=== PATIENT | female | born 2000 | race Caucasian/White ===

== ENCOUNTER 2022-02-24 02:35 | Emergency (ER) | payer OTHER ==
[2022-02-24 03:31] VITALS: RESP 16; TEMP 98.6
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
--- NOTE | 2022-02-24 04:50 | XR ---
EXAMINATION TYPE: XR chest 1V DATE OF EXAM: 02/24/2022 COMPARISON: NONE HISTORY: Pain. TECHNIQUE: Single view FINDINGS: Heart and mediastinum are normal. Lungs are clear. Diaphragm is normal. Bony thorax is inta ct IMPRESSION: Normal chest.
[2022-02-24 05:01] LABS: Appearance,Urine Clear (Clear); Bacteria,Urine Rare /hpf; Bilirubin,Urine Negative (Negative); Blood,Urine Small (Negative); Color,Urine Yellow; Glucose,Urine (UA) Negative (Negative); Ketones,Urine Negative (Negative); Leukocyte Esterase,Urine Small (Negative); Mucus,Urine Few /hpf; Nitrite,Urine Negative (Negative); Protein,Urine Trace (Negative); RBC,Urine 4 /hpf (0-5); Specific Gravity,Urine 1.031 (1.001-1.035); Squamous Epithelial Cell,Urine 1 /hpf (0-4); Urobilinogen,Urine <2.0 mg/dL (<2.0); WBC,Urine 3 /hpf (0-5)
[2022-02-24 05:04] VITALS: BP 117/68; PULSE 83
== END 2022-02-24 05:33 | disposition home or self-care (01) ==
LOC: EC 02:35
DX: R10.9 Unspecified abdominal pain (principal); V49.40XA Driver injured in collision with unspecified motor vehicles in traffic accident, initial encounter
CPT/HCPCS: 71045; 72170; 81001; 81025; 99284

== ENCOUNTER 2023-06-27 23:05 | Emergency (ER) | payer OTHER ==
[2023-06-27 23:32] VITALS: TEMP 98.5
[2023-06-28 00:35] LABS: Basophils % (A) 0 %; Eosinophils # (A) 0.3 k/uL (0-0.7); Eosinophils % (A) 3 %; HCT 36.8 % (34.0-46.0); HGB 12.3 gm/dL (11.4-16.0); Lymphocytes # (A) 1.7 k/uL (1.0-4.8); Lymphocytes % (A) 14 %; MCH 28.4 pg (25.0-35.0); MCHC 33.5 g/dL (31.0-37.0); MCV 84.8 fL (80.0-100.0); Mean Platelet Volume 9.1; Monocytes # (A) 0.5 k/uL (0-1.0); Monocytes % (A) 5 %; Neutrophils # (A) 9.1 k/uL (1.3-7.7); Neutrophils % (A) 77 %; Platelet Count 206 k/uL (150-450); RBC 4.34 m/uL (3.80-5.40); WBC 11.8 k/uL (4.0-11.0)
--- NOTE | 2023-06-28 00:53 | ED ---
Chest Pain HPI - General Chief Complaint: Chest Pain Stated Complaint: Chest Pain Time Seen by Provider: 06/27/23 23:50 Source: patient, EMS Mode of arrival: EMS Limitations: no limitations - History of Present Illness Initial Comments: Iron, currently approximately 17 weeks 22-year-old otherwise healthy female presenting to the ED with chief complaint of chest pain. Patient states that she was going to watch a movie earlier tonight approximately 9 when she started to feel some sharp chest pain in the middle/right side of her chest. No associated shortness of breath or palpitations. Denies abdominal pain or vaginal bleeding. No other complaints at this time. - Related Data Previous Rx's Medication Instructions Recorded Cephalexin [Keflex] 500 mg PO Q6HR 7 Days #28 cap 06/28/23 Allergies Allergy/AdvReac Type Severity Reaction Status Date / Time No Known Allergies Allergy Verified 06/27/23 23:10 Review of Systems ROS Statement: Those systems with pertinent positive or pertinent negative responses have been documented in the HPI. ROS Other: All systems not noted in ROS Statement are negative. Past Medical History Past Medical History: No Reported History History of Any Multi-Drug Resistant Organisms: None Reported Past Surgical History: No Surgical Hx Reported Past Psychological History: ADD/ADHD Smoking Status: Never smoker Past Alcohol Use History: None Reported Past Drug Use History: None Reported General Exam Limitations: no limitations General appearance: alert, in no apparent distress Eye exam: Present: normal appearance Neck exam: Present: normal inspection Respiratory exam: Present: normal lung sounds bilaterally, other (Reproducible right chest wall tenderness to palpation.) Cardiovascular Exam: Present: regular rate, normal rhythm GI/Abdominal exam: Present: soft, normal bowel sounds. Absent: distended, tenderness, guarding, rebound, rigid Neurological exam: Present: alert, oriented X3 Skin exam: Present: warm, dry Course Vital Signs 06/27/23 23:06 Temperature 98.5 F Pulse Rate 87 Respiratory 18 Rate Blood Pressure 132/80 O2 Sat by Pulse 100 Oximetry Chest Pain MDM - MDM Was pt. sent in by a medical professional or institution (RONY Daly, SAFETY PATROL OFFICER, urgent care, hospital, or intermediate...) When possible be specific @ -No Did you speak to anyone other than the patient for history (EMS, parent, family, police, friend...)? What history was obtained from this source @ -No Did you review nursing and triage notes (agree or disagree)? Why? @ -I reviewed and agree with nursing and triage notes Were old charts reviewed (outside hosp., previous admission, EMS record, old EKG, old radiological studies, urgent care reports/EKG's, intermediate records)? Report findings @ -No old charts were reviewed Differential Diagnosis (chest pain, altered mental status, abdominal pain women, abdominal pain men, vaginal bleeding, weakness, fever, dyspnea, syncope, headache, dizziness, GI bleed, back pain, seizure, CVA, palpatations, mental health, musculoskeletal)? @ -Differential Chest Pain: Stable Angina, Unstable Angina, STEMI, NSTEMI Aortic Dissection, Pneumothorax, Musculoskeletal, Esophageal Spasm GERD, Cholecystitis, Pancreatitis, Zoster, this is not meant to be an all-inclusive list. EKG interpreted by me (3pts min.). @ -EKG interpreted by me showing a sinus rhythm with nonspecific findings at a rate of 91 bpm. KS 198, QRS 83, QT/QTc 353/402. X-rays interpreted by me (1pt min.). @ -None CT interpreted by me (1pt min.). @ -None done U/S interpreted by me (1pt. min.). @ -None done What testing was considered but not performed or refused? (CT, X-rays, U/S, labs)? Why? @ -Chest x-ray was considered however at this time patient is and risk outweigh benefits. This was discussed with patient who is in agreement. What meds were considered but not given or refused? Why? @ -None Did you discuss the management of the patient with other professionals (professionals i.e. , PA, SAFETY PATROL OFFICER, lab, RT, psych nurse, social media executive, bleach boiler filler, teacher, compliance review officer, porter sample case)? Give summary @ -No Was smoking cessation discussed for >3mins.? @ -No Was critical care preformed (if so, how long)? @ -No Were there social determinants of health that impacted care today? How? (Homelessness, low income, unemployed, alcoholism, drug addiction, transportation, low edu. Level, literacy, decrease access to med. care, alf, rehab)? @ -No Was there de-escalation of care discussed even if they declined (Discuss DNR or withdrawal of care, Hospice)? DNR status @ -No What co-morbidities impacted this encounter? (DM, HTN, Smoking, COPD, CAD, Cancer, CVA, ARF, Chemo, Hep., AIDS, mental health diagnosis, sleep apnea, morbid obesity)? @ - Was patient admitted / discharged? Hospital course, mention meds given and route, prescriptions, significant lab abnormalities, going to OR and other pertinent info. @ -Discharge 22-year-old female currently 17 weeks presenting to the ED with a chief complaint of chest pain. Patient reports pain is sharp in nature and on the middle/right side of her chest and started to feel earlier prior to watching a movie. Laboratory studies reviewed. CBC shows an elevated white blood cell count 11.8, elevated neutrophils at 9.1. Chemistry panel largely unremarkable. Troponin undetectable. hCG quant 24,905.2. Urine does show 5 white blood cells however contaminated with 18 squamous cells moderate bacteria. On examination patient does have reproducible mid and right-sided chest wall tenderness to palpation. Regarding chest pain likely musculoskeletal in nature. Advised Tylenol at home for pain. With asymptomatic bacteriuria patient provided prescription for Keflex. Patient reports that she has been unable to follow-up with ASSOCIATE PROGRAMMER. Provided referral for ASSOCIATE PROGRAMMER. Discharged home in stable condition. Discussed return precautions with patient who verbalized agreement. Undiagnosed new problem with uncertain prognosis? @ -No Drug Therapy requiring intensive monitoring for toxicity (Heparin, Nitro, Insulin, Cardizem)? @ -No Were any procedures done? @ -No Diagnosis/symptom? @ -Chest pain Acute, or Chronic, or Acute on Chronic? @ -Acute Uncomplicated (without systemic symptoms) or Complicated (systemic symptoms)? @ -Uncomplicated Side effects of treatment? @ -No Exacerbation, Progression, or Severe Exacerbation? @ -No Poses a threat to life or bodily function? How? (Chest pain, [place], [place], pneumonia, PE, COPD, DKA, ARF, appy, cholecystitis, CVA, Diverticulitis, Homicidal, Suicidal, threat to staff... and all critical care pts) @ -No Disposition Clinical Impression: Chest pain Disposition: HOME SELF-CARE Condition: Good Instructions (If sedation given, give patient instructions): Chest Pain (ED) Additional Instructions: Please return to the Emergency Department if symptoms worsen or any other concerns. Please follow-up with your PCP and ASSOCIATE PROGRAMMER. Prescriptions: Cephalexin [Keflex] 500 mg PO Q6HR 7 Days #28 cap Is patient prescribed a controlled substance at d/c from ED?: No Referrals: Brian Munoz MD [Primary Care Provider] - 1-2 days Sita Louise MD [STAFF PHYSICIAN] - 1-2 days Time of Disposition: 02:48
[2023-06-28 00:54] LABS: INR 0.9 (<1.2); Partial Thromboplastin Time 24.8 sec (22.0-30.0); Prothrombin Time 10.3 sec (10.0-12.5)
[2023-06-28 01:00] LABS: Amorphous Sediment,Urine Rare /hpf; Appearance,Urine Cloudy (Clear); Bacteria,Urine Moderate /hpf; Bilirubin,Urine Negative (Negative); Blood,Urine Negative (Negative); Color,Urine Light Yellow; Glucose,Urine (UA) Negative (Negative); Ketones,Urine Negative (Negative); Leukocyte Esterase,Urine Negative (Negative); Mucus,Urine Moderate /hpf; Nitrite,Urine Negative (Negative); PH, Urine 6.5 (5.0-8.0); Protein,Urine Negative (Negative); RBC,Urine 1 /hpf (0-5); Specific Gravity,Urine 1.015 (1.001-1.035); Squamous Epithelial Cell,Urine 18 /hpf (0-4); Urobilinogen,Urine <2.0 mg/dL (<2.0); WBC,Urine 5 /hpf (0-5)
[2023-06-28 01:54] LABS: ALT 12 U/L (4-34); African American GFR (CKD) >90 (>60 ml/min/1.73 sqM); Anion Gap 11 mmol/L; Blood Urea Nitrogen 6 mg/dL (7-17); Carbon Dioxide 17 mmol/L (22-30); Chloride 107 mmol/L (98-107); Glucose 91 mg/dL (74-99); Non-African American GFR(CKD) >90 (>60 ml/min/1.73 sqM); Sodium 135 mmol/L (137-145); Total Bilirubin 0.8 mg/dL (0.2-1.3)
[2023-06-28 02:02] LABS: AST 36 U/L (14-36); Albumin 3.9 g/dL (3.5-5.0); Alkaline Phosphatase 61 U/L (38-126); Magnesium 1.8 mg/dL (1.6-2.3); Potassium 4.6 mmol/L (3.5-5.1); Total Protein 7.1 g/dL (6.3-8.2)
[2023-06-28 02:38] LABS: HCG,Quantitative Serum 24915.2 mIU/mL
[2023-06-28 03:14] VITALS: BP 121/70; PULSE 90; RESP 17
== END 2023-06-28 02:55 | disposition home or self-care (01) ==
LOC: EC 23:05
DX: O26.892 Other specified pregnancy related conditions, second trimester (principal); R07.89 Other chest pain; Z3A.17 17 weeks gestation of pregnancy
CPT/HCPCS: 36415; 80053; 81001; 83735; 84484; 84702; 85025; 85610; 85730; 93005; 99285

== ENCOUNTER 2023-07-26 23:28 | Emergency (ER) | payer OTHER ==
[2023-07-26 23:51] VITALS: RESP 18; TEMP 98
[2023-07-27 01:22] LABS: Basophils # (A) 0.1 k/uL (0-0.2); Basophils % (A) 0 %; Eosinophils # (A) 0.3 k/uL (0-0.7); Eosinophils % (A) 2 %; HCT 37.4 % (34.0-46.0); HGB 12.5 gm/dL (11.4-16.0); Lymphocytes # (A) 1.6 k/uL (1.0-4.8); Lymphocytes % (A) 9 %; MCH 28.6 pg (25.0-35.0); MCHC 33.4 g/dL (31.0-37.0); MCV 85.6 fL (80.0-100.0); Monocytes # (A) 0.7 k/uL (0-1.0); Monocytes % (A) 4 %; Neutrophils # (A) 13.9 k/uL (1.3-7.7); Neutrophils % (A) 84 %; Platelet Count 236 k/uL (150-450); RBC 4.36 m/uL (3.80-5.40); RDW 13.3 % (11.5-15.5); WBC 16.5 k/uL (4.0-11.0)
--- NOTE | 2023-07-27 01:57 | US ---
EXAM: US Abdomen Complete CLINICAL HISTORY: ITS.REASON US Reason: epigastric pain TECHNIQUE: Real-time ultrasound of the abdomen with image documentation. COMPARISON: No relevant prior studies available. FINDINGS: Liver: Unremarkable. No mass. No intrahepatic bile duct dilation. Gallbladder: Numerous small gallstones without evidence of gallbladder distention or wall thickening. Common bile duct: Common bile duct measures 0.3 cm. No stones. No dilation. Pancreas: Unremarkable as visualized. Kidneys: Right kidney measures 10.0 cm. No stones. No hydronephrosis. Spleen: Unremarkable. No splenomegaly. Aorta: Unremarkable. No abdominal aortic aneurysm. Inferior vena cava: Unremarkable. IMPRESSION: Cholelithiasis.
[2023-07-27 02:04] LABS: ALT 23 U/L (4-34); AST 56 U/L (14-36); African American GFR (CKD) >90 (>60 ml/min/1.73 sqM); Albumin 3.8 g/dL (3.5-5.0); Alkaline Phosphatase 78 U/L (38-126); Amylase 74 U/L (30-110); Anion Gap 9 mmol/L; Blood Urea Nitrogen 9 mg/dL (7-17); Calcium 8.9 mg/dL (8.4-10.2); Carbon Dioxide 21 mmol/L (22-30); Chloride 107 mmol/L (98-107); Glucose 129 mg/dL (74-99); Lipase 69 U/L (23-300); Non-African American GFR(CKD) >90 (>60 ml/min/1.73 sqM); Potassium 3.6 mmol/L (3.5-5.1); Sodium 137 mmol/L (137-145); Total Bilirubin 0.5 mg/dL (0.2-1.3); Total Protein 6.9 g/dL (6.3-8.2)
--- NOTE | 2023-07-27 02:25 | ED ---
Abdominal Pain HPI - General Chief Complaint: Abdominal Pain Stated Complaint: 21 weeks preg, Abdominal Pain, Chest pain Time Seen by Provider: 07/27/23 00:08 Source: patient Mode of arrival: ambulatory Limitations: no limitations - History of Present Illness Initial Comments: 22-year-old female currently 21 weeks presenting with chief complaint o f abdominal pain. Patient states that this evening she was having some pain in the epigastric region that was radiating up into the chest. The pain has since come down and remains in the bilateral upper quadrants and wraps around the umbilicus. Patient has had no vaginal bleeding or abnormal discharge or fluid. Patient has not received care yet, states that her first appointment is next week. She has been taking a vitamin. She admits to some nausea with no vomiting. No fevers. No diarrhea, hematochezia, melena. No URI-like symptoms. No difficulty breathing. - Related Data Previous Rx's Medication Instructions Recorded Cephalexin [Keflex] 500 mg PO Q6HR 7 Days #28 cap 06/28/23 Allergies Allergy/AdvReac Type Severity Reaction Status Date / Time No Known Allergies Allergy Verified 07/26/23 23:32 Review of Systems ROS Statement: Those systems with pertinent positive or pertinent negative responses have been documented in the HPI. ROS Other: All systems not noted in ROS Statement are negative. Past Medical History Past Medical History: No Reported History History of Any Multi-Drug Resistant Organisms: None Reported Past Surgical History: No Surgical Hx Reported Past Psychological History: ADD/ADHD Smoking Status: Never smoker Past Alcohol Use History: None Reported Past Drug Use History: None Reported General Exam Limitations: no limitations General appearance: alert, in no apparent distress Head exam: Present: atraumatic, normocephalic Eye exam: Present: normal appearance, EOMI Neck exam: Present: normal inspection. Absent: meningismus Respiratory exam: Present: normal lung sounds bilaterally. Absent: respiratory distress, wheezes, rales, rhonchi, stridor Cardiovascular Exam: Present: regular rate, normal rhythm, normal heart sounds. Absent: systolic murmur, diastolic murmur, rubs, gallop, clicks GI/Abdominal exam: Present: soft, tenderness (Upper abdominal pain). Absent: distended, guarding, rebound, rigid Neurological exam: Present: alert, oriented X3 Psychiatric exam: Present: normal affect, normal mood Skin exam: Present: warm, dry Course Vital Signs 07/26/23 07/27/23 23:30 03:03 Temperature 98 F Pulse Rate 83 88 Respiratory 18 18 Rate Blood Pressure 131/80 130/72 O2 Sat by Pulse 100 100 Oximetry Medical Decision Making - Medical Decision Making Was pt. sent in by a medical professional or institution (RONY Daly, TORPEDO MAN, urgent care, hospital, or jail...) When possible be specific @ -No Did you speak to anyone other than the patient for history (EMS, parent, family, police, friend...)? What history was obtained from this source @ -No Did you review nursing and triage notes (agree or disagree)? Why? @ -I reviewed and agree with nursing and triage notes Were old charts reviewed (outside hosp., previous admission, EMS record, old EKG, old radiological studies, urgent care reports/EKG's, jail records)? Report findings @ -No old charts were reviewed Differential Diagnosis (chest pain, altered mental status, abdominal pain women, abdominal pain men, vaginal bleeding, weakness, fever, dyspnea, syncope, headache, dizziness, GI bleed, back pain, seizure, CVA, palpatations, mental health, musculoskeletal)? @ -MDM Differential Abdominal Pain Women: Appendicitis, Cholecystitis, diverticulosis, ischemic bowel, pancreatitis, hepatitis, UTI, gastroenteritis, AAA, incarcerated hernia, bowel obstruction, constipation, inflammatory bowel, hepatitis, peptic ulcer disease, splenic infarction, perforated viscus, vulvitis, ovarian torsion, PID, kidney stone, placenta abruption... This is not meant to be an all-inclusive list EKG interpreted by me (3pts min.). @ -As above X-rays interpreted by me (1pt min.). @ -None done CT interpreted by me (1pt min.). @ -None done U/S interpreted by me (1pt. min.). @ -Abdominal ultrasound shows cholelithiasis What testing was considered but not performed or refused? (CT, X-rays, U/S, labs)? Why? @ -None What meds were considered but not given or refused? Why? @ -None Did you discuss the management of the patient with other professionals (professionals i.e. RONY Daly, TORPEDO MAN, lab, RT, psych nurse, director social welfare, airline pilot, teacher, ict help desk officer, case monitor)? Give summary @ -No Was smoking cessation discussed for >3mins.? @ -No Was critical care preformed (if so, how long)? @ -No Were there social determinants of health that impacted care today? How? (Homelessness, low income, unemployed, alcoholism, drug addiction, transportation, low edu. Level, literacy, decrease access to med. care, senior care, rehab)? @ -No Was there de-escalation of care discussed even if they declined (Discuss DNR or withdrawal of care, Hospice)? DNR status @ -No What co-morbidities impacted this encounter? (DM, HTN, Smoking, COPD, CAD, Cancer, CVA, ARF, Chemo, Hep., AIDS, mental health diagnosis, sleep apnea, morbid obesity)? @ -None Was patient admitted / discharged? Hospital course, mention meds given and route, prescriptions, significant lab abnormalities, going to OR and other pertinent info. @ -22-year-old female currently 21 weeks presenting with chief complaint of abdominal pain. No vaginal bleeding. Started as epigastric pain. History and physical exam are conducted. WBC 16.5, may be reactive from . Abdominal ultrasound shows cholelithiasis. On reassessment patient reports resolution of her pain. heart tones were obtained by labor and delivery nurse were in the 150s. Patient is educated on today's findings. Instructed to follow-up with her ACCOUNTS RECEIVABLE ADMINISTRATOR. Discharged home. Follow-up with PCP. Report back to ER with any new or worsening symptoms. Discussed return parameters and answered all questions. Patient conveyed verbal understanding and agreed to the plan. I discussed this case in detail with my attending Dr. Krishna Undiagnosed new problem with uncertain prognosis? @ -No Drug Therapy requiring intensive monitoring for toxicity (Heparin, Nitro, Insulin, Cardizem)? @ -No Were any procedures done? @ -No Diagnosis/symptom? @ -Cholelithiasis Acute, or Chronic, or Acute on Chronic? @ -Acute Uncomplicated (without systemic symptoms) or Complicated (systemic symptoms)? @ -Uncomplicated Side effects of treatment? @ -No Exacerbation, Progression, or Severe Exacerbation? @ -No Poses a threat to life or bodily function? How? (Chest pain, [place], [place], pneumonia, PE, COPD, DKA, ARF, appy, cholecystitis, CVA, Diverticulitis, Homicidal, Suic idal, threat to staff... and all critical care pts) @ -No - Lab Data Result diagrams: 07/27/23 00:55 07/27/23 00:55 Lab Results 07/27/23 07/27/23 07/27/23 Range/Units 00:55 00:55 00:55 WBC 16.5 H (4.0-11.0) k/uL RBC 4.36 (3.80-5.40) m/uL Hgb 12.5 (11.4-16.0) gm/dL Hct 37.4 (34.0-46.0) % MCV 85.6 (80.0-100.0) fL MCH 28.6 (25.0-35.0) pg MCHC 33.4 (31.0-37.0) g/dL RDW 13.3 (11.5-15.5) % Plt Count 236 (150-450) k/uL MPV 9.0 Neutrophils % 84 % Lymphocytes % 9 % Monocytes % 4 % Eosinophils % 2 % Basophils % 0 % Neutrophils # 13.9 H (1.3-7.7) k/uL Lymphocytes # 1.6 (1.0-4.8) k/uL Monocytes # 0.7 (0-1.0) k/uL Eosinophils # 0.3 (0-0.7) k/uL Basophils # 0.1 (0-0.2) k/uL Sodium 137 (137-145) mmol/L Potassium 3.6 (3.5-5.1) mmol/L Chloride 107 (98-107) mmol/L Carbon Dioxide 21 L (22-30) mmol/L Anion Gap 9 mmol/L BUN 9 (7-17) mg/dL Creatinine 0.46 L (0.52-1.04) mg/dL Est GFR (CKD-EPI)AfAm >90 (>60 ml/min/1.73 sqM) Est GFR (CKD-EPI)NonAf >90 (>60 ml/min/1.73 sqM) Glucose 129 H (74-99) mg/dL Plasma Lactic Acid Luis Alberto 1.8 (0.7-2.0) mmol/L Calcium 8.9 (8.4-10.2) mg/dL Total Bilirubin 0.5 (0.2-1.3) mg/dL AST 56 H (14-36) U/L ALT 23 (4-34) U/L Alkaline Phosphatase 78 (38-126) U/L Total Protein 6.9 (6.3-8.2) g/dL Albumin 3.8 (3.5-5.0) g/dL Amylase 74 (30-110) U/L Lipase 69 (23-300) U/L Disposition Clinical Impression: Cholelithiasis Disposition: HOME SELF-CARE Condition: Fair Instructions (If sedation given, give patient instructions): Gallstones (ED), Low Fat Diet (ED) Additional Instructions: Report to OB triage. follow-up with PCP and ACCOUNTS RECEIVABLE ADMINISTRATOR. Report back to ER with any new or worsening symptoms. Is patient prescribed a controlled substance at d/c from ED?: No Referrals: Brian Munoz MD [Primary Care Provider] - 1-2 days Time of Disposition: 02:11
[2023-07-27 03:35] VITALS: BP 130/72; PULSE 88
== END 2023-07-27 03:03 | disposition home or self-care (01) ==
LOC: EC 23:28
DX: O26.892 Other specified pregnancy related conditions, second trimester (principal); K80.20 Calculus of gallbladder without cholecystitis without obstruction; Z3A.21 21 weeks gestation of pregnancy
CPT/HCPCS: 36415; 76705; 80053; 82150; 83605; 83690; 85025; 93005; 99284

== ENCOUNTER 2023-08-04 21:37 | Outpatient (CLI) | payer OTHER ==
[2023-08-04 22:17] VITALS: BP 131/75; PULSE 98; RESP 16; TEMP 96.8
--- NOTE | 2023-08-07 08:15 | P.MSEPDOC ---
Presenting Problems - Arrival Data Date of Arrival on Unit: 08/04/23 Time of Arrival on Unit: 21:37 Mode of Transport: Ambulatory - Complaint OB-Reason for Admission/Chief Complaint: Decreased Movement Comment: Pt presents to triage with c/o decreased movement since yesterday at 2200 and and felt faint today around 1pm when shopping. Medical History - Information : 1 Para: 0 Term: 0 : 0 Abortions: Spontaneous or Elective: 0 Number of Living Children: 0 - Gestational Age Gestational Age by SRINIVAS (wks/days): 22 Weeks and 4 Days Review of Systems - Review of Systems Constitutional: No problems Breast: No problems ENT: No problems Cardiovascular: No problems Respiratory: No problems Gastrointestinal: No problems Genitourinary: No problems Musculoskeletal: No problems Neurological: No problems Skin: No problems Comment: pt. states she felt "faintish" when shopping at 1pm today Vital Signs - Temperature Temperature: 96.8 F Temperature Source: Temporal Artery Scan - Pulse Pulse Oximetery Pulse Rate: 98 Pulse Assessment Method: Automatic Cuff - Respirations Respiratory Rate: 16 Oxygen Delivery Method: Room Air O2 Sat by Pulse Oximetry: 98 - Blood Pressure Right Arm Blood Pressure: 131/75 Blood Pressure Mean: 93 Blood Pressure Source: Automatic Cuff Medical Screen Scoring - Assessment - Baby A Baseline FHR: 160 Physician Notification - Physician Notified Physician Notified Date: 08/04/23 Physician Notified Time: 21:48 Physician: Apryl Whitney New Order Received: Yes - Notification Comment Comment: FHR 148-160 with doppler, orders to discharge home educated on movement at this stage in pregancy, also to increase fluid intake and snacks before going out Maternal Triage Index - Stat/Priority 1 Stat Priority 1: No - Urgent/Priority 2 Urgent Priority 2: Yes Provider Notified: Apryl Whitney Provider Notified Time: 21:48 Criteria Met for Priority 2: pt. states decrease movement Disposition - Disposition OB Disposition: Discharge to home Discharge Date: 08/04/23 Discharge Time: 21:55 I agree with the RN Medical Screening Exam: Yes Case reviewed; plan agreed upon as documented in EMR&OBIX.: Yes Diagnosis: DECREASED MOVEMENTS, SECOND TRIMESTER, FETUS 1
== END 2023-08-04 21:55 | disposition home or self-care (01) ==
LOC: FBPOP 21:37
PROVIDERS: ATTEND Obstetrics & Gynecology
DX: O36.8121 Decreased fetal movements, second trimester, fetus 1 (principal); Z3A.22 22 weeks gestation of pregnancy
CPT/HCPCS: 99213

== ENCOUNTER 2023-08-09 18:31 | Outpatient (CLI) | payer SELFPAY ==
[2023-08-09 19:49] VITALS: BP 128/72; PULSE 90; RESP 16; TEMP 98.8
--- NOTE | 2023-09-11 09:12 | P.MSEPDOC ---
Presenting Problems - Arrival Data Date of Arrival on Unit: 08/09/23 Time of Arrival on Unit: 18:31 Mode of Transport: Ambulatory - Complaint OB-Reason for Admission/Chief Complaint: Decreased Movement, Pain Medical History - Information : 1 Para: 0 Term: 0 : 0 Abortions: Spontaneous or Elective: 0 Number of Living Children: 0 - Gestational Age Gestational Age by SRINIVAS (wks/days): 23 Weeks and 2 Days Review of Systems - Review of Systems Constitutional: No problems Breast: No problems ENT: No problems Cardiovascular: No problems Respiratory: No problems Gastrointestinal: No problems Genitourinary: No problems Musculoskeletal: No problems Neurological: No problems Skin: No problems Vital Signs - Temperature Temperature: 98.8 F Temperature Source: Temporal Artery Scan - Pulse Right Sitting Pulse Rate: 90 Pulse Assessment Method: Automatic Cuff - Respirations Respiratory Rate: 16 Oxygen Delivery Method: Room Air - Blood Pressure Right Arm Blood Pressure: 128/72 Blood Pressure Mean: 90 Blood Pressure Source: Automatic Cuff Physician Notification - Physician Notified Physician Notified Date: 08/09/23 Physician Notified Time: 18:59 Physician: Che Luke New Order Received: Yes (d/c home) Maternal Triage Index - Non-Urgent/Priority 4 Non-Urgent Priority 4: Yes Criteria Met for Priority 4: decreased FM at 23 weeks gestation, fht dopplered 140-150 bpm, no contractions Disposition - Disposition OB Disposition: Discharge to home Discharge Date: 08/09/23 Discharge Time: 19:16 I agree with the RN Medical Screening Exam: Yes Case reviewed; plan agreed upon as documented in EMR&OBIX.: Yes Diagnosis: DECREASED MOVEMENTS, SECOND TRIMESTER, FETUS 1
== END 2023-08-09 19:16 | disposition home or self-care (01) ==
LOC: FBPOP 18:31
PROVIDERS: ATTEND Obstetrics & Gynecology Obstetrics
DX: O36.8121 Decreased fetal movements, second trimester, fetus 1 (principal); Z3A.23 23 weeks gestation of pregnancy
CPT/HCPCS: 99213

== ENCOUNTER 2023-09-05 17:34 | Outpatient (CLI) | payer SELFPAY ==
[2023-09-05 19:02] VITALS: BP 128/76; PULSE 96; RESP 16; TEMP 97.9
--- NOTE | 2023-09-15 09:30 | P.MSEPDOC ---
Presenting Problems - Arrival Data Date of Arrival on Unit: 09/05/23 Time of Arrival on Unit: 17:34 Mode of Transport: Ambulatory - Complaint OB-Reason for Admission/Chief Complaint: Pain Comment: sharp constant right side back pain, under scapula, and lower abd cramping for the last 2 days Medical History - Information : 1 Para: 0 Term: 0 : 0 Abortions: Spontaneous or Elective: 0 Number of Living Children: 0 - Gestational Age Gestational Age by SRINIVAS (wks/days): 27 Weeks and 1 Days Review of Systems - Review of Systems Constitutional: No problems Breast: No problems ENT: No problems Cardiovascular: No problems Respiratory: No problems Gastrointestinal: No problems Genitourinary: No problems Musculoskeletal: No problems Neurological: No problems Skin: No problems Vital Signs - Temperature Temperature: 97.9 F Temperature Source: Temporal Artery Scan - Pulse Right Sitting Pulse Rate: 96 Pulse Assessment Method: Automatic Cuff - Respirations Respiratory Rate: 16 Oxygen Delivery Method: Room Air - Blood Pressure Right Arm Blood Pressure: 128/76 Blood Pressure Mean: 93 Blood Pressure Source: Automatic Cuff Medical Screen Scoring - Assessment - Baby A Baseline FHR: 145 Heart Rate - NICHD Category: Category I (Normal) Physician Notification - Physician Notified Physician Notified Date: 09/05/23 Physician Notified Time: 18:30 Physician: Salbador Boland Order Received: Yes (d/c) Maternal Triage Index - Non-Urgent/Priority 4 Non-Urgent Priority 4: Yes Criteria Met for Priority 4: pt to triage c/o sharp constant right side back pain, under scapula, and lower abd cramping for the last 2 days, reassuring fht, no contracrions Disposition - Disposition OB Disposition: Discharge to home Discharge Date: 09/05/23 Discharge Time: 18:41 I agree with the RN Medical Screening Exam: Yes Physician's MSE Comment: I have neither seen nor examined the patient. Case reviewed; plan agreed upon as documented in EMR&OBIX.: Yes Diagnosis: RELATED CONDITIONS, UNSPECIFIED, SECOND TRIMESTER
== END 2023-09-05 18:41 | disposition home or self-care (01) ==
LOC: FBPOP 17:34
PROVIDERS: ATTEND Obstetrics & Gynecology
DX: O26.892 Other specified pregnancy related conditions, second trimester (principal); R10.30 Lower abdominal pain, unspecified; M54.50 Low back pain, unspecified; Z3A.27 27 weeks gestation of pregnancy
CPT/HCPCS: 99213

== ENCOUNTER 2023-11-07 20:39 | Outpatient (CLI) | payer OTHER ==
[2023-11-07] MEDS: CALCIUM CARBONATE 500 MG CHEWABLE PO PRN (21:40)
[2023-11-07 22:20] LABS: Appearance,Urine Clear (Clear); Bacteria,Urine Rare /hpf; Bilirubin,Urine Negative (Negative); Blood,Urine Negative (Negative); Color,Urine Yellow; Glucose,Urine (UA) Negative (Negative); Ketones,Urine Negative (Negative); Leukocyte Esterase,Urine Negative (Negative); Mucus,Urine Moderate /hpf; Nitrite,Urine Negative (Negative); Protein,Urine 1+ (Negative); RBC,Urine 1 /hpf (0-5); Specific Gravity,Urine 1.029 (1.001-1.035); Squamous Epithelial Cell,Urine 4 /hpf (0-4); WBC,Urine 1 /hpf (0-5)
[2023-11-07 23:48] VITALS: BP 129/71; PULSE 92; RESP 16; TEMP 97.2
--- NOTE | 2024-01-02 20:34 | P.MSEPDOC ---
Presenting Problems - Arrival Data Date of Arrival on Unit: 11/07/23 Time of Arrival on Unit: 20:39 Mode of Transport: Ambulatory - Complaint OB-Reason for Admission/Chief Complaint: Possible Onset of Labor, Pain Comment: Pt presents to triage with c/0 cx 5 min apart starting at 1999 rates 10/17. Pt also c/o chest pain starting aroudn the same time. Pt states chest pain is "sharp but thinks it might be related to her hx of gallstones" Medical History - Information : 1 Para: 0 Term: 0 : 0 Abortions: Spontaneous or Elective: 0 - Gestational Age Gestational Age by SRINIVAS (wks/days): 36 Weeks and 1 Days Review of Systems - Review of Systems Constitutional: No problems Breast: No problems ENT: No problems Cardiovascular: No problems Respiratory: No problems Gastrointestinal: No problems Genitourinary: No problems Musculoskeletal: No problems Neurological: No problems Skin: No problems Vital Signs - Temperature Temperature: 97.2 F Temperature Source: Temporal Artery Scan - Pulse Pulse Oximetery Pulse Rate: 92 Pulse Assessment Method: Pulse Oximetry - Respirations Respiratory Rate: 16 Oxygen Delivery Method: Room Air O2 Sat by Pulse Oximetry: 99 - Blood Pressure Right Arm Blood Pressure: 129/71 Blood Pressure Mean: 90 Blood Pressure Source: Automatic Cuff Medical Screen Scoring - Uterine Contractions Intensity: Mild Resting: Soft to palpation - Assessment - Baby A Baseline FHR: 135 Heart Rate - NICHD Category: Category I (Normal) NST: Reactive Physician Notification - Physician Notified Physician Notified Date: 11/07/23 Physician Notified Time: 21:30 Physician: Sita Louise New Order Received: Yes - Notification Comment Comment: Dr. Louise called with report, Rn reported on uterine irritabilty, cervical check (closed,thick,high), reactive NST, complaint of contractions every 5 minutes with pain rating 7/10, complaint of white discharge. Orders to obtain and send UA, give 2 tums and watch for 1 hour. Maternal Triage Index - Stat/Priority 1 Stat Priority 1: No - Urgent/Priority 2 Urgent Priority 2: No - Prompt/Priority 3 Prompt Priority 3: Yes Criteria Met for Priority 3: Pt presents to triage with c/0 cx 5 min apart starting at 1999 rates 10/17. Pt also c/o chest pain starting aroudn the same time. Pt states chest pain is "sharp but thinks it might be related to her hx of gallstones" Disposition - Disposition OB Disposition: Discharge to home Discharge Date: 11/07/23 Discharge Time: 22:56 I agree with the RN Medical Screening Exam: Yes Physician's MSE Comment: I have neither seen nor examined the patient Case reviewed; plan agreed upon as documented in EMR&OBIX.: Yes Diagnosis: FALSE LABOR, UNSPECIFIED
== END 2023-11-07 22:56 | disposition home or self-care (01) ==
LOC: FBPOP 20:39
PROVIDERS: ATTEND Obstetrics & Gynecology
DX: O47.03 False labor before 37 completed weeks of gestation, third trimester (principal); Z3A.36 36 weeks gestation of pregnancy
CPT/HCPCS: 59025; 81001; 99213

== ENCOUNTER → 2023-11-16 | Outpatient (CLI) | payer OTHER | LOC: FBPOP 21:36 | PROVIDERS: ATTEND Obstetrics & Gynecology | CPT/HCPCS: 59025; 99213 ==

== ENCOUNTER 2023-12-03 12:09 | Outpatient (CLI) | payer OTHER ==
[2023-12-03 13:37] VITALS: BP 131/72; PULSE 93; RESP 18; TEMP 96.5
--- NOTE | 2023-12-22 09:16 | P.MSEPDOC ---
Presenting Problems - Arrival Data Date of Arrival on Unit: 12/03/23 Time of Arrival on Unit: 12:15 Mode of Transport: Ambulatory - Complaint OB-Reason for Admission/Chief Complaint: Possible Onset of Labor Comment: cramping every 5 minutes since 0950 Medical History - Information : 1 Para: 0 Term: 0 : 0 Abortions: Spontaneous or Elective: 0 Number of Living Children: 0 - Gestational Age Gestational Age by SRINIVAS (wks/days): 39 Weeks and 6 Days Review of Systems - Review of Systems Constitutional: No problems Breast: No problems ENT: No problems Cardiovascular: No problems Respiratory: No problems Gastrointestinal: No problems Genitourinary: No problems Musculoskeletal: No problems Neurological: No problems Skin: No problems Vital Signs - Temperature Temperature: 96.5 F Temperature Source: Temporal Artery Scan - Pulse Right Brachial Pulse Rate: 93 Pulse Assessment Method: Automatic Cuff - Respirations Respiratory Rate: 18 Oxygen Delivery Method: Room Air O2 Sat by Pulse Oximetry: 97 - Blood Pressure Right Arm Blood Pressure: 131/72 Blood Pressure Mean: 91 Blood Pressure Source: Automatic Cuff Medical Screen Scoring - Cervical Exam Dilation (cm): 0 Effacement (%): 0 Station: -3 Membranes: Intact - Uterine Contractions Frequency From (mins): 4 Frequency To (mins): 7 Duration From (seconds): 50 Duration To (seconds): 80 Intensity: Mild Resting: Soft to palpation - Assessment - Baby A Baseline FHR: 130 Heart Rate - NICHD Category: Category I (Normal) NST: Reactive Physician Notification - Physician Notified Physician Notified Date: 12/03/23 Physician Notified Time: 12:25 Physician: Salbador Boland Order Received: Yes - Notification Comment Comment: D/C Home and follow up in office as scheuled this week Maternal Triage Index - Maternal Triage Index Presenting for scheduled procedure w/no complaint: No - Stat/Priority 1 Stat Priority 1: No - Urgent/Priority 2 Urgent Priority 2: No - Prompt/Priority 3 Prompt Priority 3: No - Non-Urgent/Priority 4 Non-Urgent Priority 4: Yes Criteria Met for Priority 4: contractions every 4-7 minutes Disposition - Disposition OB Disposition: Discharge to home Discharge Date: 12/03/23 Discharge Time: 13:20 I agree with the RN Medical Screening Exam: Yes Physician's MSE Comment: I have neither seen nor examined the patient. Case reviewed; plan agreed upon as documented in EMR&OBIX.: Yes Diagnosis: RELATED CONDITIONS, UNSPECIFIED, THIRD TRIMESTER
== END 2023-12-03 13:20 | disposition home or self-care (01) ==
LOC: FBPOP 12:09
PROVIDERS: ATTEND Obstetrics & Gynecology
CPT/HCPCS: 59025; 99213

== ENCOUNTER 2023-12-04 06:00 | Inpatient (IN) | payer OTHER ==
[2023-12-04] MEDS: DINOPROSTONE 10 MG INSERT.ER VAGINAL ONE (16:56)
[2023-12-04 21:03] LABS: Basophils % (A) 0 %; Eosinophils # (A) 0.2 k/uL (0-0.7); Eosinophils % (A) 2 %; HCT 34.2 % (34.0-46.0); HGB 11.1 gm/dL (11.4-16.0); Lymphocytes # (A) 1.7 k/uL (1.0-4.8); Lymphocytes % (A) 18 %; MCH 27.3 pg (25.0-35.0); MCHC 32.6 g/dL (31.0-37.0); MCV 83.9 fL (80.0-100.0); Mean Platelet Volume 10.1; Monocytes # (A) 0.6 k/uL (0-1.0); Monocytes % (A) 6 %; Neutrophils # (A) 6.9 k/uL (1.3-7.7); Neutrophils % (A) 72 %; Platelet Count 227 k/uL (150-450); RBC 4.08 m/uL (3.80-5.40); RDW 13.8 % (11.5-15.5); WBC 9.6 k/uL (3.8-10.6)
[2023-12-05] MEDS ORDERED: TRANEXAMIC 1,000 MG/100ML-NACL 1,000 MG in EMPTY BAG 1 BAG IV PRN (00:34)
[2023-12-05] MEDS ORDERED: miSOPROStoL 200 MCG TAB PO PRN (00:34)
[2023-12-05] MEDS ORDERED: CARBOPROST TROMETHAMINE 250 MCG/ML 1 ML AMP IM PRN (00:34)
[2023-12-05] MEDS ORDERED: OXYTOCIN 10 UNIT/ML 1 ML VIAL IM PRN ×2 (00:34→16:42)
[2023-12-05] MEDS ORDERED: LIDOCAINE 0.5% (PF) 5 MG/ML (50 ML SDV) SQ PRN (00:34)
[2023-12-05] MEDS ORDERED: METHYLERGONOVINE 0.2 MG/ML 1 ML AMP IM PRN (00:34)
[2023-12-05] MEDS ORDERED: miSOPROStoL 200 MCG TAB RECTAL PRN (00:34)
[2023-12-05] MEDS ORDERED: TERBUTALINE 1 MG/ML VIAL SQ PRN (00:34)
[2023-12-05] MEDS: LACTATED RINGERS 1,000 ML IV SCH (00:41)
[2023-12-05] MEDS ORDERED: OXYTOCIN 30 UNITS/500 ML NS 30 UNIT in SALINE 1 500ML.BAG IV SCH ×2 (00:45→18:15)
[2023-12-05] MEDS: NALBUPHINE 10 MG/ML (10 ML MDV) IV PRN (01:21)
[2023-12-05] MEDS ORDERED: SODIUM CHLORIDE 0.9% 250 ML BAG ONE (04:46)
[2023-12-05] MEDS ORDERED: fentaNYL (PF) 50 MCG/ML 5 ML AMP ONE (04:46)
[2023-12-05] MEDS ORDERED: ROPIVACAINE 5 MG/ML 30 ML VIAL ONE (04:46)
[2023-12-05] MEDS: AMPICILLIN 2,000 MG in SODIUM CHLORIDE 0.9% 100 ML IVPB ONE (05:55)
[2023-12-05] MEDS: AMPICILLIN 1,000 MG in SODIUM CHLORIDE 0.9% 50 ML IVPB SCH (10:00)
[2023-12-05] MEDS: ACETAMINOPHEN IV (For NPO) 1,000 MG in EMPTY BAG 1 BAG IVPB ONE (14:55)
[2023-12-05] MEDS: diphenhydrAMINE 50 MG/ML 1 ML VIAL IVP STA (14:57)
[2023-12-05] MEDS: CITRIC ACID-SODIUM CITRATE 15 ML CUP PO ONE (16:55)
[2023-12-05] MEDS ORDERED: MORPHINE SULFATE (PF) 0.3 MG/0.3 ML SYR ONE (17:06)
[2023-12-05] MEDS ORDERED: OXYTOCIN 30 UNITS/500 ML NS BAG IV ONE (17:06)
[2023-12-05] MEDS ORDERED: KETOROLAC 15 MG/ML 1 ML VIAL ONE (17:06)
--- NOTE | 2023-12-05 17:59 | P.HPOB ---
History of Present Illness H&P Date: 12/04/23 Chief Complaint: induction of labor 23 year old presented for an induction of labor At 40 weeks. Her cervix is closed and thick and so she came for a Cervidil induction. The heart tones are category 1 and she's not pedro. Review of Systems All systems: negative Constitutional: Denies chills, Denies fever Eyes: denies blurred vision, denies pain Ears, nose, mouth and throat: Denies headache, Denies sore throat Cardiovascular: Denies chest pain, Denies shortness of breath Respiratory: Denies cough Gastrointestinal: Denies abdominal pain, Denies diarrhea, Denies nausea, Denies vomiting Genitourinary: Denies dysuria, Denies hematuria Musculoskeletal: Denies myalgias Integumentary: Denies pruritus, Denies rash Neurological: Denies numbness, Denies weakness Psychiatric: Denies anxiety, Denies depression Endocrine: Denies fatigue, Denies weight change Past Medical History Past Medical History: No Reported History History of Any Multi-Drug Resistant Organisms: None Reported Past Surgical History: No Surgical Hx Reported Past Anesthesia/Blood Transfusion Reactions: No Reported Reaction Past Psychological History: Depression Smoking Status: Never smoker Past Alcohol Use History: None Reported Past Drug Use History: None Reported - Past Family History Mother History Unknown: Yes Additional Family Medical History / Comment(s): pt adopted Father History Unknown: Yes Additional Family Medical History / Comment(s): pt adopted Medications and Allergies Home Medications Medication Instructions Recorded Confirmed Type Vit No.179/Iron/Folic 1 each PO DAILY 08/04/23 12/04/23 History [ Tablet] Allergies Allergy/AdvReac Type Severity Reaction Status Date / Time No Known Allergies Allergy Verified 12/04/23 16:25 Exam Osteopathic Statement: *. No significant issues noted on an osteopathic structural exam other than those noted in the History and Physical/Consult. Intake and Output 12/05/23 12/05/23 12/05/23 06:59 14:59 22:59 Intake Total 1999 Balance 1999 Intake: IV 1999 Heart: Regular rate and rhythm Lungs: Clear to auscultation bilaterally Abdomen: Soft, nontender Extremities: Negative Homans sign Results Result Diagrams: 12/04/23 20:41 Abnormal Lab Results - Last 24 Hours (Table) 12/04/23 Range/Units 20:41 Hgb 11.1 L (11.4-16.0) gm/dL Assessment and Plan (1) Elective induction of labor planned Current Visit: Yes Status: Acute Code(s): [id number] - SNOMED Code(s): 045122472 Plan: 1. Cervidil tonight and then Pitocin and amniotomy in the morning
[2023-12-05] MEDS ORDERED: diphenhydrAMINE 50 MG/ML 1 ML VIAL IVP PRN (18:05)
[2023-12-05] MEDS ORDERED: LANOLIN CREAM 1 GM TUBE TOPICAL PRN (18:05)
[2023-12-05] MEDS ORDERED: diphenhydrAMINE 50 MG CAP PO PRN (18:05)
[2023-12-05] MEDS ORDERED: ONDANSETRON 4 MG/2 ML VIAL IVP PRN (18:05)
[2023-12-05] MEDS ORDERED: NALOXONE 0.4 MG/ML 1 ML VIAL IV PRN (18:05)
[2023-12-05] MEDS ORDERED: METOCLOPRAMIDE 5 MG/ML 2 ML VIAL IVP PRN (18:05)
[2023-12-05] MEDS ORDERED: ZOLPIDEM 5 MG TAB PO PRN (18:05)
[2023-12-05] MEDS ORDERED: diphenhydrAMINE 25 MG CAP PO PRN (18:05)
--- NOTE | 2023-12-05 18:05 | P.OP ---
Date of Procedure: 12/05/23 Preoperative Diagnosis: 1. Arrest of active phase 2. maternal fever 3. at 40 weeks Postoperative Diagnosis: same and OP position Procedure(s) Performed: primary low transverse Anesthesia: epidural Surgeon: Apryl Whitney [employer] Cook #1: Kimberley Roberson Estimated Blood Loss (ml): 790 IV fluids (ml): 1,000 Urine output (ml): 100 Pathology: none sent Condition: stable Disposition: floor Indications for Procedure: 23-year-old presented at 40 weeks' gestation for induction of labor. Her cervix was closed and thick and Cervidil was placed. She progressed throughout the night and her water spontaneously broke. By the morning she was 7 cm. heart tones category 1. Midday the mother was still 8 cm and not making any cervical change. Cervix was well and she did get a fever that was treated with a 4 minutes. The nurse had thought she was in anterior lip but then she was 8 cm again and this was from at least 8:00 in the morning until 5:00 at night. Informed consent was obtained patient huddle was performed at bedside section was called. Operative Findings: viable male, Apgars 9, 9, weight 8 pounds. normal uterus, tubes, ovaries. Description of Procedure: Patient was taken to the operating room where epidural anesthesia was found be adequate. She was prepped and draped in normal sterile fashion in dorsal supine position with a leftward tilt. Pfannenstiel skin incision was made the scalpel and carried through to the underlying layer of fascia with the scalpel. Fascia was incised in midline and carried bilaterally with the Gutierrez scissors. The superior aspect of the fascial incision was grasped with Veyo clamps elevated and the underlying rectus muscles dissected off with the Gutierrez's. Attention was then turned to inferior aspect of same incision which in a similar fashion was grasped tented up and the underlying rectus muscles dissected off with the Gutierrez's. The rectus muscles were the midline and the peritoneum was identified tented up and entered sharply with the scalpel. The incision was extended superiorly and inferiorly with good visualization of the bladder. The bladder blade was inserted and the vesicouterine peritoneum was incised the Metzenbaums then carried bilaterally and bladder flap created digitally. A low transverse incision was then made on the uterus with the scalpel. This was carried bilaterally and digital manner. 's head delivered atraumatically, nose and mouth bulb suctioned, cord clamped and cut, handed off to yovanny gil nurses. Apgars 9,9, weight 8 lbs. 0 oz. Placenta delivered manually, intact with three-vessel cord. The uterus is exteriorized and cleared of all clots and debris. The uterine incision was closed with 0 Vicryl in a running locked fashion. Second layer of the same sutures used in imbricating fashion to obtain excellent hemostasis. The fascia was reapproximated using 0 Vicryl in a running fashion. The subcutaneous tissues closed with 3-0 Vicryl running fashion. The skin was closed jonh. Patient tolerated the procedure well, sponge and instrument counts were correct times 2 and she was taken to the recovery room in stable condition.
[2023-12-05] MEDS: SENNOSIDES-DOCUSATE SODIUM 1 EACH TAB PO SCH (20:43)
[2023-12-05] MEDS: ACETAMINOPHEN TAB 500 MG TAB PO SCH (21:14)
[2023-12-06] MEDS: KETOROLAC 15 MG/ML 1 ML VIAL IVP SCH (00:07)
[2023-12-06] MEDS: diphenhydrAMINE 50 MG/ML 1 ML VIAL IVP PRN (00:09)
[2023-12-06] MEDS: IBUPROFEN 600 MG TAB PO SCH (02:58)
[2023-12-06] MEDS ORDERED: KETOROLAC 15 MG/ML 1 ML VIAL IVP SCH (06:00)
--- NOTE | 2023-12-06 06:54 | P.PN ---
Progress Note - Text Progress Note Date: 12/06/23 Postoperative day 1 status post section under epidural anesthesia, and epidural morphine given for postoperative analgesia, patient doing well, there is no anesthesia related complications, Patient had no headache, vital signs stable , Assessment and plan= postop day 1 status post , doing well there is no anesthesia related complication.
--- NOTE | 2023-12-06 07:21 | P.PNOBGPC ---
Subjective - Subjective Principal diagnosis: S/P 1*LTCS POD #1 Interval history: Patient seen and examined. Denies N/V, F/C, CP, SOB, calf pain. Patient reports: Reports appetite normal, Reports voiding normally, Reports pain well controlled, Reports ambulating normally : doing well Objective - Vital Signs Latest vital signs: Vital Signs Temp Pulse Resp BP Pulse Ox 12/06/23 04:00 80 16 111/73 98 12/06/23 00:00 99.4 F 100 16 108/72 97 12/05/23 22:05 16 12/05/23 20:02 97.7 F 80 16 136/63 100 12/05/23 19:50 82 16 143/79 100 12/05/23 19:31 98.0 F 84 16 133/80 100 12/05/23 19:16 84 16 120/70 100 12/05/23 19:03 79 16 113/61 100 12/05/23 18:50 95 16 106/63 98 12/05/23 18:35 78 16 107/57 99 12/05/23 18:20 86 16 110/50 97 12/05/23 18:05 97.3 F L 84 16 106/53 97 Intake and Output 12/05/23 12/06/23 12/06/23 22:59 06:59 14:59 Output Total 1497 550 Balance -1497 -550 Output: Urine 400 550 Uretheral (Mcneil) 550 Output, Quantitative 1097 Blood Loss Other: Voiding Method Indwelling Catheter - Exam Lungs: bilateral: normal Chest: Normal S1, Normal S2 Extremities: Present: normal Abdomen: Present: normal appearance, soft. Absent: distention, tenderness Incision: Present: normal, dry, intact Uterus: Present: normal, firm Assessment and Plan (1) Elective induction of labor planned Current Visit: Yes Status: Resolved Code(s): [id number] - SNOMED Code(s): 605991197 (2) Status post primary low transverse section Current Visit: Yes Status: Acute Code(s): Z98.891 - HISTORY OF UTERINE SCAR FROM PREVIOUS SURGERY SNOMED Code(s): 004621357 Plan: 1. cont pp care
[2023-12-06 07:41] LABS: Basophils % (A) 0 %; Eosinophils # (A) 0.1 k/uL (0-0.7); Eosinophils % (A) 1 %; HCT 26.2 % (34.0-46.0); Lymphocytes # (A) 1.6 k/uL (1.0-4.8); Lymphocytes % (A) 11 %; MCH 27.6 pg (25.0-35.0); MCHC 33.8 g/dL (31.0-37.0); MCV 81.8 fL (80.0-100.0); Mean Platelet Volume 10.1; Monocytes # (A) 0.6 k/uL (0-1.0); Monocytes % (A) 4 %; Neutrophils # (A) 12.1 k/uL (1.3-7.7); Neutrophils % (A) 82 %; Platelet Count 218 k/uL (150-450); RDW 13.5 % (11.5-15.5); WBC 14.8 k/uL (3.8-10.6)
[2023-12-06 07:44] LABS: HGB 8.8 gm/dL (11.4-16.0)
[2023-12-06 20:57] VITALS: RESP 18
--- NOTE | 2023-12-07 07:42 | P.DS ---
Providers Date of admission: 12/04/23 16:05 Expected date of discharge: 12/07/23 Attending physician: Apryl Whitney Primary care physician: Stated None - Discharge Diagnosis(es) (1) Elective induction of labor planned Current Visit: Yes Status: Resolved (2) Status post primary low transverse section Current Visit: Yes Status: Acute Hospital Course: Patient presented for induction of labor. She underwent a primary low transverse . Postoperative course has been uneventful. She denies nausea, vomiting, chest pain, shortness of breath or calf pain. Incision is clean, dry, intact with jonh. The jonh can be removed today. Patient will be discharged home postoperative day #2 in stable condition to follow-up with me in 1-2 weeks. Plan - Discharge Summary New Discharge Prescriptions: No Action Vit No.179/Iron/Folic [ Tablet] 1 each PO DAILY Discharge Medication List Vit No.179/Iron/Folic [ Tablet] 1 each PO DAILY 08/04/23 [History] Follow up Appointment(s)/Referral(s): Apryl Whitney DO [Doctor of Osteopathic Medicine] - 01/16/24 1:15 pm (Post C/S Appointment 12-18-2023 at 1:15 pm) Activity/Diet/Wound Care/Special Instructions: [facility] - PIN [phone] Discharge Disposition: HOME SELF-CARE
[2023-12-07 08:57] VITALS: TEMP 98
[2023-12-07] MEDS: MEASLES-MUMPS-RUBELLA VACC/PF 12,500 UNIT/0.5 ML VIAL SQ ONE (12:06)
[2023-12-07] MEDS: SIMETHICONE 80 MG CHEWABLE PO PRN (15:50)
[2023-12-07 18:37] VITALS: BP 120/75; PULSE 90
== END 2023-12-07 18:46 | disposition home or self-care (01) | DRG 540 ==
LOC: 4FBP 16:05 → EEVIPCON 16:05
PROVIDERS: ADMIT Obstetrics & Gynecology; ATTEND Obstetrics & Gynecology
PROC: 10D00Z1 Extraction of Products of Conception, Low, Open Approach (ICD-10-PCS; principal; 2023-12-04)
PROC: 10907ZC Drainage of Amniotic Fluid, Therapeutic from Products of Conception, Via Natural or Artificial Opening (ICD-10-PCS; 2023-12-04)
PROC: 3E0P7VZ Introduction of Hormone into Female Reproductive, Via Natural or Artificial Opening (ICD-10-PCS; 2023-12-04)
PROC: 3E033VJ Introduction of Other Hormone into Peripheral Vein, Percutaneous Approach (ICD-10-PCS; 2023-12-04)
DX: O62.1 Secondary uterine inertia (principal); F32.A Depression, unspecified; O75.2 Pyrexia during labor, not elsewhere classified; O99.344 Other mental disorders complicating childbirth; Z37.0 Single live birth; Z3A.40 40 weeks gestation of pregnancy

== ENCOUNTER 2023-12-12 12:45 | Emergency (ER) | payer OTHER ==
--- NOTE | 2023-12-12 13:30 | ED ---
General Adult HPI - General Chief complaint: Recheck/Abnormal Lab/Rx Stated complaint: C section issues Time Seen by Provider: 12/12/23 13:18 Source: patient, RN notes reviewed Mode of arrival: ambulatory Limitations: no limitations - History of Present Illness Initial comments: 23-year-old female presents emergency department with chief complaint of nile inage from her incision site from her 1 week ago. Patient states she noted some green drainage. Patient was complains of leg swelling and feeling lightheaded. Patient states she had no issues with her blood pressure or preeclampsia. Patient denies any fevers or chills no other associated symptoms. - Related Data Home Medications Medication Instructions Recorded Confirmed Vit No.179/Iron/Folic 1 each PO DAILY 08/04/23 12/04/23 [ Tablet] Previous Rx's Medication Instructions Recorded Cephalexin [Keflex] 500 mg PO Q6HR #40 cap 12/12/23 Allergies Allergy/AdvReac Type Severity Reaction Status Date / Time No Known Allergies Allergy Verified 12/12/23 13:14 Review of Systems ROS Statement: Those systems with pertinent positive or pertinent negative responses have been documented in the HPI. ROS Other: All systems not noted in ROS Statement are negative. Past Medical History Past Medical History: No Reported History History of Any Multi-Drug Resistant Organisms: None Reported Past Surgical History: No Surgical Hx Reported Additional Past Surgical History / Comment(s): Past Anesthesia/Blood Transfusion Reactions: No Reported Reaction Past Psychological History: Depression Smoking Status: Never smoker Past Alcohol Use History: None Reported Past Drug Use History: None Reported - Past Family History Mother History Unknown: Yes Additional Family Medical History / Comment(s): pt adopted Father History Unknown: Yes Additional Family Medical History / Comment(s): pt adopted General Exam Limitations: no limitations General appearance: alert, in no apparent distress Head exam: Present: atraumatic, normocephalic, normal inspection Neck exam: Present: normal inspection, full ROM. Absent: tenderness, meningismus, lymphadenopathy Respiratory exam: Present: normal lung sounds bilaterally. Absent: respiratory distress, wheezes, rales, rhonchi, stridor Cardiovascular Exam: Present: regular rate, normal rhythm, normal heart sounds. Absent: systolic murmur, diastolic murmur, rubs, gallop, clicks GI/Abdominal exam: Present: soft, tenderness, normal bowel sounds. Absent: distended, guarding, rebound, rigid Extremities exam: Present: pedal edema Course Vital Signs 12/12/23 13:11 Temperature 97.8 F Pulse Rate 68 Respiratory 20 Rate Blood Pressure 136/83 O2 Sat by Pulse 100 Oximetry Medical Decision Making - Medical Decision Making Was pt. sent in by a medical professional or institution (RONY Daly, [employer], urgent care, hospital, or alf...) When possible be specific @ -No Did you speak to anyone other than the patient for history (EMS, parent, family, police, friend...)? What history was obtained from this source @ -No Did you review nursing and triage notes (agree or disagree)? Why? @ -I reviewed and agree with nursing and triage notes Were old charts reviewed (outside hosp., previous admission, EMS record, old EKG, old radiological studies, urgent care reports/EKG's, alf records)? Report findings @ -No old charts were reviewed Differential Diagnosis (chest pain, altered mental status, abdominal pain women, abdominal pain men, vaginal bleeding, weakness, fever, dyspnea, syncope, headache, dizziness, GI bleed, back pain, seizure, CVA, palpatations, mental health, musculoskeletal)? @ -[ section seroma, wound dehiscence, incision infection, preeclampsia EKG interpreted by me (3pts min.). @ -none X-rays interpreted by me (1pt min.). @ -None done CT interpreted by me (1pt min.). @ -None done U/S interpreted by me (1pt. min.). @ -None done What testing was considered but not performed or refused? (CT, X-rays, U/S, labs)? Why? @ -None What meds were considered but not given or refused? Why? @ -None Did you discuss the management of the patient with other professionals (professionals i.e. RONY Daly, [employer], lab, RT, psych nurse, social work nurse, circular clerk, teacher, penal officer, test case developer)? Give summary @ -No Was smoking cessation discussed for >3mins.? @ -No Was critical care preformed (if so, how long)? @ -No Were there social determinants of health that impacted care today? How? (Homelessness, low income, unemployed, alcoholism, drug addiction, transportation, low edu. Level, literacy, decrease access to med. care, fci, rehab)? @ -No Was there de-escalation of care discussed even if they declined (Discuss DNR or withdrawal of care, Hospice)? DNR status @ -No What co-morbidities impacted this encounter? (DM, HTN, Smoking, COPD, CAD, Cancer, CVA, ARF, Chemo, Hep., AIDS, mental health diagnosis, sleep apnea, morbid obesity)? @ -None Was patient admitted / discharged? Hospital course, mention meds given and route, prescriptions, significant lab abnormalities, going to OR and other pertinent info. @ -disharge patient uric acid is negative, LDH is at upper limits normal blood pressure is not elevated above 140/85 patient will have recheck in 1 to 2 days return for as discussed. Patient discharged on antibiotics for wound infection Undiagnosed new problem with uncertain prognosis? @ -No Drug Therapy requiring intensive monitoring for toxicity (Heparin, Nitro, Insulin, Cardizem)? @ -No Were any procedures done? @ -No Diagnosis/symptom? @ - infection Acute, or Chronic, or Acute on Chronic? @ -acute Uncomplicated (without systemic symptoms) or Complicated (systemic symptoms)? @ -uncomplicated Side effects of treatment? @ -No Exacerbation, Progression, or Severe Exacerbation? @ -No Poses a threat to life or bodily function? How? (Chest pain, [place], [place], pneumonia, PE, COPD, DKA, ARF, appy, cholecystitis, CVA, Diverticulitis, Homicidal, Suicidal, threat to staff... and all critical care pts) @ -No - Lab Data Result diagrams: 12/12/23 13:36 12/12/23 13:36 Lab Results 12/12/23 12/12/23 Range/Units 13:36 13:36 WBC 6.0 (3.8-10.6) k/uL RBC 3.58 L (3.80-5.40) m/uL Hgb 9.3 L (11.4-16.0) gm/dL Hct 29.2 L (34.0-46.0) % MCV 81.7 (80.0-100.0) fL MCH 26.1 (25.0-35.0) pg MCHC 32.0 (31.0-37.0) g/dL RDW 13.5 (11.5-15.5) % Plt Count 430 (150-450) k/uL MPV 9.5 Neutrophils % 63 % Lymphocytes % 23 % Monocytes % 7 % Eosinophils % 4 % Basophils % 0 % Neutrophils # 3.8 (1.3-7.7) k/uL Lymphocytes # 1.4 (1.0-4.8) k/uL Monocytes # 0.4 (0-1.0) k/uL Eosinophils # 0.2 (0-0.7) k/uL Basophils # 0.0 (0-0.2) k/uL Hypochromasia Slight Sodium 137 (137-145) mmol/L Potassium 4.2 (3.5-5.1) mmol/L Chloride 108 H (98-107) mmol/L Carbon Dioxide 25 (22-30) mmol/L Anion Gap 4 mmol/L BUN 14 (7-17) mg/dL Creatinine 0.62 (0.52-1.04) mg/dL Est GFR (CKD-EPI)AfAm >90 (>60 ml/min/1.73 sqM) Est GFR (CKD-EPI)NonAf >90 (>60 ml/min/1.73 sqM) Glucose 77 (74-99) mg/dL Uric Acid 7.3 (3.7-7.4) mg/dL Calcium 9.1 (8.4-10.2) mg/dL Total Bilirubin 0.5 (0.2-1.3) mg/dL AST 24 (14-36) U/L ALT 22 (4-34) U/L Alkaline Phosphatase 96 (38-126) U/L Lactate Dehydrogenase 265 H (120-246) U/L Total Protein 6.5 (6.3-8.2) g/dL Albumin 3.6 (3.5-5.0) g/dL Disposition Clinical Impression: Wound infection following section, Disposition: HOME SELF-CARE Condition: Stable Instructions (If sedation given, give patient instructions): Acute Wound Care (ED) Additional Instructions: Please return to the Emergency Department if symptoms worsen or any other concerns. Prescriptions: Cephalexin [Keflex] 500 mg PO Q6HR #40 cap Is patient prescribed a controlled substance at d/c from ED?: No Referrals: Brian Munoz MD [Primary Care Provider] - 1-2 days Time of Disposition: 15:32
[2023-12-12 13:44] LABS: Basophils % (A) 0 %; Eosinophils # (A) 0.2 k/uL (0-0.7); Eosinophils % (A) 4 %; HCT 29.2 % (34.0-46.0); HGB 9.3 gm/dL (11.4-16.0); Hypochromasia Slight; Lymphocytes # (A) 1.4 k/uL (1.0-4.8); Lymphocytes % (A) 23 %; MCH 26.1 pg (25.0-35.0); MCV 81.7 fL (80.0-100.0); Mean Platelet Volume 9.5; Monocytes # (A) 0.4 k/uL (0-1.0); Monocytes % (A) 7 %; Neutrophils # (A) 3.8 k/uL (1.3-7.7); Neutrophils % (A) 63 %; Platelet Count 430 k/uL (150-450); RBC 3.58 m/uL (3.80-5.40); RDW 13.5 % (11.5-15.5)
[2023-12-12 14:03] LABS: ALT 22 U/L (4-34); AST 24 U/L (14-36); African American GFR (CKD) >90 (>60 ml/min/1.73 sqM); Albumin 3.6 g/dL (3.5-5.0); Alkaline Phosphatase 96 U/L (38-126); Anion Gap 4 mmol/L; Blood Urea Nitrogen 14 mg/dL (7-17); Calcium 9.1 mg/dL (8.4-10.2); Carbon Dioxide 25 mmol/L (22-30); Chloride 108 mmol/L (98-107); Glucose 77 mg/dL (74-99); LDH 265 U/L (120-246); Non-African American GFR(CKD) >90 (>60 ml/min/1.73 sqM); Potassium 4.2 mmol/L (3.5-5.1); Sodium 137 mmol/L (137-145); Total Bilirubin 0.5 mg/dL (0.2-1.3); Total Protein 6.5 g/dL (6.3-8.2); Uric Acid 7.3 mg/dL (3.7-7.4)
[2023-12-12 16:07] VITALS: BP 133/84; PULSE 67; RESP 17; TEMP 98.7
== END 2023-12-12 16:05 | disposition home or self-care (01) ==
LOC: EC 12:45
DX: O90.0 Disruption of cesarean delivery wound (principal)
CPT/HCPCS: 36415; 80053; 83615; 84550; 85025; 99284

== ENCOUNTER 2023-12-27 19:47 | Inpatient (IN) | payer OTHER ==
--- NOTE | 2023-12-27 21:27 | ED ---
Abdominal Pain HPI - General Chief Complaint: Abdominal Pain Stated Complaint: abd pain, allergic reaction Time Seen by Provider: 12/27/23 20:01 Source: patient, RN notes reviewed Mode of arrival: ambulatory Limitations: no limitations - History of Present Illness Initial Comments: 23-year-old female presents emergency department chief complaint of right upper quadrant abdominal pain. Patient states that she does have a history of gallstones however this pain has been relatively constant over the past day. States that the pain radiates into her back and she has been feeling nauseous. Denies fevers, chills, hematemesis or hematochezia. The patient had recent section completed 3 weeks ago. - Related Data Home Medications Medication Instructions Recorded Confirmed Vit No.179/Iron/Folic 1 each PO DAILY 08/04/23 12/04/23 [ Tablet] Previous Rx's Medication Instructions Recorded Cephalexin [Keflex] 500 mg PO Q6HR #40 cap 12/12/23 Allergies Allergy/AdvReac Type Severity Reaction Status Date / Time No Known Allergies Allergy Verified 12/27/23 20:11 Review of Systems ROS Statement: Those systems with pertinent positive or pertinent negative responses have been documented in the HPI. ROS Other: All systems not noted in ROS Statement are negative. Past Medical History Past Medical History: No Reported History History of Any Multi-Drug Resistant Organisms: None Reported Past Surgical History: Section Additional Past Surgical History / Comment(s): Past Anesthesia/Blood Transfusion Reactions: No Reported Reaction Past Psychological History: Depression Smoking Status: Never smoker Past Alcohol Use History: None Reported Past Drug Use History: None Reported - Past Family History Mother History Unknown: Yes Additional Family Medical History / Comment(s): pt adopted Father History Unknown: Yes Additional Family Medical History / Comment(s): pt adopted General Exam Limitations: no limitations General appearance: alert, in no apparent distress Head exam: Present: atraumatic, normocephalic, normal inspection ENT exam: Present: normal exam, mucous membranes moist Neck exam: Present: normal inspection. Absent: tenderness, meningismus, lymphadenopathy Respiratory exam: Present: normal lung sounds bilaterally. Absent: respiratory distress, wheezes, rales, rhonchi, stridor Cardiovascular Exam: Present: regular rate, normal rhythm, normal heart sounds. Absent: systolic murmur, diastolic murmur, rubs, gallop, clicks GI/Abdominal exam: Present: soft, tenderness (RUQ, suprapubic), normal bowel sounds. Absent: distended, guarding, rebound, rigid Extremities exam: Present: normal inspection, full ROM, normal capillary refill. Absent: tenderness, pedal edema, joint swelling, calf tenderness Back exam: Present: normal inspection Neurological exam: Present: alert, oriented X3, CN II-XII intact Skin exam: Present: warm, dry, intact, normal color. Absent: rash Course Vital Signs 12/27/23 20:07 Temperature 98.5 F Pulse Rate 60 Respiratory 22 Rate Blood Pressure 152/84 O2 Sat by Pulse 100 Oximetry Medical Decision Making - Medical Decision Making Was pt. sent in by a medical professional or institution (, PA, AUTOMOBILE TAILLIGHT ASSEMBLER, urgent care, hospital, or snf...) When possible be specific @ -No Did you speak to anyone other than the patient for history (EMS, parent, family, police, friend...)? What history was obtained from this source @ -No Did you review nursing and triage notes (agree or disagree)? Why? @ -I reviewed and agree with nursing and triage notes Were old charts reviewed (outside hosp., previous admission, EMS record, old EKG, old radiological studies, urgent care reports/EKG's, snf records)? Report findings @ -No old charts were reviewed Differential Diagnosis (chest pain, altered mental status, abdominal pain women, abdominal pain men, vaginal bleeding, weakness, fever, dyspnea, syncope, headache, dizziness, GI bleed, back pain, seizure, CVA, palpatations, mental health, musculoskeletal)? @ -Differential Abdominal Pain Women: Appendicitis, Cholecystitis, diverticulosis, ischemic bowel, pancreatitis, hepatitis, UTI, gastroenteritis, AAA, incarcerated hernia, bowel obstruction, constipation, inflammatory bowel, hepatitis, peptic ulcer disease, splenic infarction, perforated viscus, vulvitis, ovarian torsion, PID, kidney stone, placenta abruption, this is not meant to be an all-inclusive list EKG interpreted by me (3pts min.). @ -None X-rays interpreted by me (1pt min.). @ -None done CT interpreted by me (1pt min.). @ -None done U/S interpreted by me (1pt. min.). @ -Ultrasound of the gallbladder reveals internal gallstones without secondary ultrasound evidence for acute cholecystitis however there is new mild extrahepatic biliary dilation What testing was considered but not performed or refused? (CT, X-rays, U/S, l abs)? Why? @ -None What meds were considered but not given or refused? Why? @ -None Did you discuss the management of the patient with other professionals (professionals i.e. Dr., PA, AUTOMOBILE TAILLIGHT ASSEMBLER, lab, RT, psych nurse, clinical social worker, hedis review nurse, teacher, child support case officer, comp field case manager)? Give summary @ -Spoke with tag meter operator, Dr. Jernigan, to the patient's laboratory studies of transaminitis and ultrasound findings concerning for extrahepatic biliary dilation and patient is excepted for consult to rule out choledocolithiasis, Additionally I spoke with the patient's primary care provider, Dr. Munoz, valentine atient will be admitted to internal medicine with GI and consults. Was smoking cessation discussed for >3mins.? @ -No Was critical care preformed (if so, how long)? @ -No Were there social determinants of health that impacted care today? How? (Homelessness, low income, unemployed, alcoholism, drug addiction, transportation, low edu. Level, literacy, decrease access to med. care, penitentiary, rehab)? @ -No Was there de-escalation of care discussed even if they declined (Discuss DNR or withdrawal of care, Hospice)? DNR status @ -No What co-morbidities impacted this encounter? (DM, HTN, Smoking, COPD, CAD, Cancer, CVA, ARF, Chemo, Hep., AIDS, mental health diagnosis, sleep apnea, morbid obesity)? @ -None Was patient admitted / discharged? Hospital course, mention meds given and route, prescriptions, significant lab abnormalities, going to OR and other pertinent info. @ -admitted. 23-year-old female with right upper quadrant abdominal pain. Patient's physical examination reveals right upper quadrant abdominal pain to palpation with normal bowel sounds heard throughout all quadrants. Patient also has mild suprapubic tenderness to palpation as she had a section completed 3 weeks ago however incisional site is healing appropriately. Patient is symptomatically treated with Toradol and antiemetics pending laboratory results and ultrasound imaging. She is in agreement this plan. CBC unremarkable, CMP reveals transaminitis with an AST of 381, ALT 397, alk phos 211, elevated bilirubin of 4.3, urinalysis reveals epithelial cells and white blood cells consistent with contamination. Patient will be admitted to internal medicine with GI consult for further evaluation of transaminitis to rule out choledocholithiasis. Discussed with Dr. Krishna Undiagnosed new problem with uncertain prognosis? @ -No Drug Therapy requiring intensive monitoring for toxicity (Heparin, Nitro, Insulin, Cardizem)? @ -No Were any procedures done? @ -No Diagnosis/symptom? @ -transaminitis, biliary dilation Acute, or Chronic, or Acute on Chronic? @ -acute Uncomplicated (without systemic symptoms) or Complicated (systemic symptoms)? @ -complicated Side effects of treatment? @ -No Exacerbation, Progression, or Severe Exacerbation? @ -No Poses a threat to life or bodily function? How? (Chest pain, USA, PR, pneumonia, PE, COPD, DKA, ARF, appy, cholecystitis, CVA, Diverticulitis, Homicidal, Suicidal, threat to staff... and all critical care pts) @ -No - Lab Data Result diagrams: 12/27/23 21:26 12/27/23 21:26 Lab Results 12/27/23 12/27/23 12/27/23 Range/Units 21:26 21:26 21:26 WBC 10.1 (3.8-10.6) k/uL RBC 4.48 (3.80-5.40) m/uL Hgb 11.7 (11.4-16.0) gm/dL Hct 35.9 (34.0-46.0) % MCV 80.3 (80.0-100.0) fL MCH 26.1 (25.0-35.0) pg MCHC 32.5 (31.0-37.0) g/dL RDW 13.5 (11.5-15.5) % Plt Count 326 (150-450) k/uL MPV 8.8 Neutrophils % 75 % Lymphocytes % 16 % Monocytes % 3 % Eosinophils % 4 % Basophils % 1 % Neutrophils # 7.5 (1.3-7.7) k/uL Lymphocytes # 1.6 (1.0-4.8) k/uL Monocytes # 0.3 (0-1.0) k/uL Eosinophils # 0.4 (0-0.7) k/uL Basophils # 0.1 (0-0.2) k/uL Hypochromasia Slight Sodium 140 (137-145) mmol/L Potassium 4.1 (3.5-5.1) mmol/L Chloride 103 (98-107) mmol/L Carbon Dioxide 30 (22-30) mmol/L Anion Gap 7 mmol/L BUN 9 (7-17) mg/dL Creatinine 0.73 (0.52-1.04) mg/dL Est GFR (CKD-EPI)AfAm >90 (>60 ml/min/1.73 sqM) Est GFR (CKD-EPI)NonAf >90 (>60 ml/min/1.73 sqM) Glucose 102 H (74-99) mg/dL Plasma Lactic Acid Luis Alberto 0.8 (0.7-2.0) mmol/L Calcium 9.6 (8.4-10.2) mg/dL Total Bilirubin 4.3 H (0.2-1.3) mg/dL AST 381 H (14-36) U/L ALT 397 H (4-34) U/L Alkaline Phosphatase 211 H (38-126) U/L Total Protein 7.7 (6.3-8.2) g/dL Albumin 4.5 (3.5-5.0) g/dL Amylase 45 (30-110) U/L Lipase 71 (23-300) U/L Urine Color Urine Appearance (Clear) Urine RBC (0-5) /hpf Urine WBC (0-5) /hpf Ur Squamous Epith Cells (0-4) /hpf Urine Bacteria (None) /hpf Urine Mucus (None) /hpf Urine HCG, Qual (Not Detectd) 12/27/23 12/27/23 Range/Units 21:35 21:35 WBC (3.8-10.6) k/uL RBC (3.80-5.40) m/uL Hgb (11.4-16.0) gm/dL Hct (34.0-46.0) % MCV (80.0-100.0) fL MCH (25.0-35.0) pg MCHC (31.0-37.0) g/dL RDW (11.5-15.5) % Plt Count (150-450) k/uL MPV Neutrophils % % Lymphocytes % % Monocytes % % Eosinophils % % Basophils % % Neutrophils # (1.3-7.7) k/uL Lymphocytes # (1.0-4.8) k/uL Monocytes # (0-1.0) k/uL Eosinophils # (0-0.7) k/uL Basophils # (0-0.2) k/uL Hypochromasia Sodium (137-145) mmol/L Potassium (3.5-5.1) mmol/L Chloride (98-107) mmol/L Carbon Dioxide (22-30) mmol/L Anion Gap mmol/L BUN (7-17) mg/dL Creatinine (0.52-1.04) mg/dL Est GFR (CKD-EPI)AfAm (>60 ml/min/1.73 sqM) Est GFR (CKD-EPI)NonAf (>60 ml/min/1.73 sqM) Glucose (74-99) mg/dL Plasma Lactic Acid Luis Alberto (0.7-2.0) mmol/L Calcium (8.4-10.2) mg/dL Total Bilirubin (0.2-1.3) mg/dL AST (14-36) U/L ALT (4-34) U/L Alkaline Phosphatase (38-126) U/L Total Protein (6.3-8.2) g/dL Albumin (3.5-5.0) g/dL Amylase (30-110) U/L Lipase (23-300) U/L Urine Color [place] Urine Appearance Clear (Clear) Urine RBC 2 (0-5) /hpf Urine WBC 10 H (0-5) /hpf Ur Squamous Epith Cells 9 H (0-4) /hpf Urine Bacteria Rare H (None) /hpf Urine Mucus Many H (None) /hpf Urine HCG, Qual Not Detected (Not Detectd) Disposition Clinical Impression: Transaminitis, Dilation of biliary tract Disposition: ADMITTED IP TO THIS [facility] Condition: Stable Decision to Admit Reason: Admit from EC Decision Date: 12/27/23 Decision Time: 22:42
[2023-12-27 21:57] LABS: Basophils # (A) 0.1 k/uL (0-0.2); Basophils % (A) 1 %; Eosinophils # (A) 0.4 k/uL (0-0.7); Eosinophils % (A) 4 %; HCT 35.9 % (34.0-46.0); HGB 11.7 gm/dL (11.4-16.0); Hypochromasia Slight; Lymphocytes # (A) 1.6 k/uL (1.0-4.8); Lymphocytes % (A) 16 %; MCH 26.1 pg (25.0-35.0); MCHC 32.5 g/dL (31.0-37.0); MCV 80.3 fL (80.0-100.0); Mean Platelet Volume 8.8; Monocytes # (A) 0.3 k/uL (0-1.0); Monocytes % (A) 3 %; Neutrophils # (A) 7.5 k/uL (1.3-7.7); Neutrophils % (A) 75 %; Platelet Count 326 k/uL (150-450); RBC 4.48 m/uL (3.80-5.40); RDW 13.5 % (11.5-15.5); WBC 10.1 k/uL (3.8-10.6)
[2023-12-27 22:19] LABS: Bacteria,Urine Rare /hpf; Mucus,Urine Many /hpf; RBC,Urine 2 /hpf (0-5); Squamous Epithelial Cell,Urine 9 /hpf (0-4); WBC,Urine 10 /hpf (0-5)
[2023-12-27 22:20] LABS: ALT 397 U/L (4-34); AST 381 U/L (14-36); African American GFR (CKD) >90 (>60 ml/min/1.73 sqM); Albumin 4.5 g/dL (3.5-5.0); Alkaline Phosphatase 211 U/L (38-126); Amylase 45 U/L (30-110); Anion Gap 7 mmol/L; Blood Urea Nitrogen 9 mg/dL (7-17); Calcium 9.6 mg/dL (8.4-10.2); Carbon Dioxide 30 mmol/L (22-30); Chloride 103 mmol/L (98-107); Glucose 102 mg/dL (74-99); Lipase 71 U/L (23-300); Non-African American GFR(CKD) >90 (>60 ml/min/1.73 sqM); Potassium 4.1 mmol/L (3.5-5.1); Sodium 140 mmol/L (137-145); Total Bilirubin 4.3 mg/dL (0.2-1.3); Total Protein 7.7 g/dL (6.3-8.2)
[2023-12-27 22:20] LABS: Color,Urine Orange
[2023-12-27 22:21] LABS: Appearance,Urine Clear (Clear)
--- NOTE | 2023-12-27 22:21 | US ---
EXAMINATION TYPE: US gallbladder DATE OF EXAM: 12/27/2023 COMPARISON: 07/27/2023 CLINICAL INDICATION: Female, 23 years old with history of RUQ ab pain; RUQ ab pain for 2 days, worse today. hx C section a month ago TECHNIQUE: Multiple sonographic images of the right upper quadrant are obtained. FINDINGS: EXAM MEASUREMENTS: Liver Length: 17.8 Gallbladder Wall: 0.3m CBD: 0.8m Right Kidney: 9.2 x 3.8 x 4.6 COMMERCIAL MANAGER NOTES:Limited due to overlying bowel gas and patient pain Pancreas: Obscured by bowel gas Liver: Upper limits of normal in size Gallbladder: Multiple small stones seen Evidence for sonographic Hoffman's sign: No CBD: Slightly Dilated Right Kidney: WNL as best seen IMPRESSION: Internal gallstones redemonstrated without secondary ultrasound evidence for acute cholec ystitis. There is new mild extrahepatic biliary dilatation which may warrant further workup with ERCP or MRCP evaluation. [facility], , 12/27/2023 10:19 PM
[2023-12-27] MEDS ORDERED: ONDANSETRON 4 MG/2 ML VIAL IVP PRN (22:42)
[2023-12-27] MEDS ORDERED: ACETAMINOPHEN TAB 325 MG TAB PO PRN (22:42)
[2023-12-27] MEDS ORDERED: KETOROLAC 15 MG/ML 1 ML VIAL IVP PRN (22:42)
[2023-12-27] MEDS ORDERED: NALOXONE 0.4 MG/ML 1 ML VIAL IV PRN (22:42)
[2023-12-27] MEDS: ONDANSETRON 4 MG/2 ML VIAL IVP STA (22:52)
[2023-12-27] MEDS: KETOROLAC 15 MG/ML 1 ML VIAL IVP STA (22:53)
[2023-12-28] MEDS: IBUPROFEN 400 MG TAB PO PRN (00:19)
[2023-12-28] MEDS: HYDROmorphone 0.5 MG/0.5 ML SYRINGE IVP PRN (02:29)
[2023-12-28 04:25] LABS: Basophils % (A) 1 %; Eosinophils # (A) 0.4 k/uL (0-0.7); Eosinophils % (A) 5 %; HCT 33.8 % (34.0-46.0); HGB 10.5 gm/dL (11.4-16.0); Hypochromasia Marked; Lymphocytes # (A) 1.3 k/uL (1.0-4.8); Lymphocytes % (A) 19 %; MCH 25.7 pg (25.0-35.0); MCHC 31.2 g/dL (31.0-37.0); MCV 82.4 fL (80.0-100.0); Mean Platelet Volume 8.3; Monocytes # (A) 0.3 k/uL (0-1.0); Monocytes % (A) 4 %; Neutrophils % (A) 70 %; Platelet Count 306 k/uL (150-450); RDW 13.3 % (11.5-15.5); WBC 7.2 k/uL (3.8-10.6)
[2023-12-28 05:16] LABS: ALT 332 U/L (4-34); AST 278 U/L (14-36); African American GFR (CKD) >90 (>60 ml/min/1.73 sqM); Albumin 3.7 g/dL (3.5-5.0); Alkaline Phosphatase 182 U/L (38-126); Anion Gap 8 mmol/L; Blood Urea Nitrogen 11 mg/dL (7-17); Calcium 8.8 mg/dL (8.4-10.2); Carbon Dioxide 25 mmol/L (22-30); Chloride 105 mmol/L (98-107); Glucose 131 mg/dL (74-99); Non-African American GFR(CKD) >90 (>60 ml/min/1.73 sqM); Potassium 3.9 mmol/L (3.5-5.1); Sodium 138 mmol/L (137-145); Total Bilirubin 3.8 mg/dL (0.2-1.3); Total Protein 6.5 g/dL (6.3-8.2)
[2023-12-28] MEDS: SODIUM CHLORIDE 0.9% 1,000 ML IV STA (08:44)
[2023-12-28 10:22] LABS: Prothrombin Time 11.2 sec (10.0-12.5)
[2023-12-28] MEDS: SODIUM CHLORIDE 0.9% 1,000 ML IV SCH (10:57)
--- NOTE | 2023-12-28 10:58 | P.GSCN ---
History of Present Illness Consult date: 12/28/23 History of present illness: CHIEF COMPLAINT: Abdominal pain HISTORY OF PRESENT ILLNESS: This is a 23-year-old female who presented with right upper quadrant abdominal pain. She has a history of gallstones. Patient reports that yesterday morning she woke up with the right upper quadrant abdominal pain. She was having severe nausea. Her urine has been dark. She at e a burrito over the night before. Patient had a ultrasound completed that reported evidence of gallstones without ultrasound evidence for acute cholecystitis. There is new mild extrahepatic biliary dilatation. Patient had his elevated LFTs and total bilirubin. She has been seen by GI service and scheduled for ERCP. Patient did have a 3 weeks ago. PAST MEDICAL HISTORY: See below PAST SURGICAL HISTORY: See below MEDICATIONS: See below ALLERGIES: See below SOCIAL HISTORY: No illicit drug use. REVIEW OF SYSTEMS: CONSTITUTIONAL: Denies fever or chills. HEENT: Denies blurred vision, vision changes, or eye pain. Denies hemoptysis CARDIOVASCULAR: Denies chest pain or pressure. RESPIRATORY: No shortness of breath. GASTROINTESTINAL: See HPI for pertinent findings HEMATOLOGIC: Denies bleeding disorders. GENITOURINARY: Denies any blood in urine or increased urinary frequency. SKIN: Denies pruitis. Denies rash. PHYSICAL EXAM: VITAL SIGNS: Reviewed GENERAL: Well-developed in no acute distress. HEENT: Scleral icterus present ABDOMEN: Soft. Nondistended. Tenderness to palpation right upper quadrant. incision is healing. Clean dry and intact. NEUROLOGIC: Alert and oriented. Cranial nerves II through XII grossly intact. Skin: Jaundice LABORATORY DATA: WBC is 7.2 Hgb 10.5 platelets 306 Sodium 138 potassium 3.9 creatinine 0.64 Lactic acid 0.8 Total bilirubin 4.3-3.8 AST 381-278 ALT 397-332 alk phos 182 lipase 71 IMAGING: Gallbladder ultrasound as stated above ASSESSMENT: 1. Cholecystitis with gallstones and new mild extrahepatic biliary dilatation reported on ultrasound 2. Elevated LFTs and bilirubin. Possible choledocholithiasis. 3. Recent PLAN: -Patient will be scheduled for a laparoscopic cholecystectomy with Dr. Romo on 12/30/23 -Patient scheduled for ERCP with GI service tomorrow -Agree with clear liquid diet today -Repeat labs in a.m. -Continue IV fluids -Continue supportive care Physician Cable Mock Up Assembler note has been reviewed by physician. Signing provider agrees with the documented findings, assessment, and plan of care. Past Medical History Past Medical History: No Reported History History of Any Multi-Drug Resistant Organisms: None Reported Past Surgical History: Section Additional Past Surgical History / Comment(s): Past Anesthesia/Blood Transfusion Reactions: No Reported Reaction Past Psychological History: Depression Smoking Status: Never smoker Past Alcohol Use History: None Reported Past Drug Use History: None Reported - Past Family History Mother History Unknown: Yes Additional Family Medical History / Comment(s): pt adopted Father History Unknown: Yes Additional Family Medical History / Comment(s): pt adopted Medications and Allergies Home Medications Medication Instructions Recorded Confirmed Type Cephalexin [Keflex] 500 mg PO Q6HR #40 cap 12/12/23 12/28/23 Rx Allergies Allergy/AdvReac Type Severity Reaction Status Date / Time No Known Allergies Allergy Verified 12/28/23 08:27 Surgical - Exam Vital Signs Temp Pulse Resp BP Pulse Ox 98.5 F 60 22 152/84 100 12/27/23 20:07 12/27/23 20:07 12/27/23 20:07 12/27/23 20:07 12/27/23 20:07 Results - Labs 12/28/23 03:43 12/28/23 03:41 Abnormal Lab Results - Last 24 Hours (Table) 12/27/23 12/27/23 12/28/23 Range/Units 21:26 21:35 03:41 Hgb (11.4-16.0) gm/dL Hct (34.0-46.0) % Glucose 102 H 131 H (74-99) mg/dL Total Bilirubin 4.3 H 3.8 H (0.2-1.3) mg/dL AST 381 H 278 H (14-36) U/L ALT 397 H 332 H (4-34) U/L Alkaline Phosphatase 211 H 182 H (38-126) U/L Urine WBC 10 H (0-5) /hpf Ur Squamous Epith Cells 9 H (0-4) /hpf Urine Bacteria Rare H (None) /hpf Urine Mucus Many H (None) /hpf 12/28/23 Range/Units 03:43 Hgb 10.5 L (11.4-16.0) gm/dL Hct 33.8 L (34.0-46.0) % Glucose (74-99) mg/dL Total Bilirubin (0.2-1.3) mg/dL AST (14-36) U/L ALT (4-34) U/L Alkaline Phosphatase (38-126) U/L Urine WBC (0-5) /hpf Ur Squamous Epith Cells (0-4) /hpf Urine Bacteria (None) /hpf Urine Mucus (None) /hpf Diabetes panel 12/27/23 12/28/23 Range/Units 21:26 03:41 Sodium 140 138 (137-145) mmol/L Potassium 4.1 3.9 (3.5-5.1) mmol/L Chloride 103 105 (98-107) mmol/L Carbon Dioxide 30 25 (22-30) mmol/L BUN 9 11 (7-17) mg/dL Creatinine 0.73 0.64 (0.52-1.04) mg/dL Glucose 102 H 131 H (74-99) mg/dL Calcium 9.6 8.8 (8.4-10.2) mg/dL AST 381 H 278 H (14-36) U/L ALT 397 H 332 H (4-34) U/L Alkaline Phosphatase 211 H 182 H (38-126) U/L Total Protein 7.7 6.5 (6.3-8.2) g/dL Albumin 4.5 3.7 (3.5-5.0) g/dL Calcium panel 12/27/23 12/28/23 Range/Units 21:26 03:41 Calcium 9.6 8.8 (8.4-10.2) mg/dL Albumin 4.5 3.7 (3.5-5.0) g/dL Pituitary panel 12/27/23 12/28/23 Range/Units 21:26 03:41 Sodium 140 138 (137-145) mmol/L Potassium 4.1 3.9 (3.5-5.1) mmol/L Chloride 103 105 (98-107) mmol/L Carbon Dioxide 30 25 (22-30) mmol/L BUN 9 11 (7-17) mg/dL Creatinine 0.73 0.64 (0.52-1.04) mg/dL Glucose 102 H 131 H (74-99) mg/dL Calcium 9.6 8.8 (8.4-10.2) mg/dL Adrenal panel 12/27/23 12/28/23 Range/Units 21:26 03:41 Sodium 140 138 (137-145) mmol/L Potassium 4.1 3.9 (3.5-5.1) mmol/L Chloride 103 105 (98-107) mmol/L Carbon Dioxide 30 25 (22-30) mmol/L BUN 9 11 (7-17) mg/dL Creatinine 0.73 0.64 (0.52-1.04) mg/dL Glucose 102 H 131 H (74-99) mg/dL Calcium 9.6 8.8 (8.4-10.2) mg/dL Total Bilirubin 4.3 H 3.8 H (0.2-1.3) mg/dL AST 381 H 278 H (14-36) U/L ALT 397 H 332 H (4-34) U/L Alkaline Phosphatase 211 H 182 H (38-126) U/L Total Protein 7.7 6.5 (6.3-8.2) g/dL Albumin 4.5 3.7 (3.5-5.0) g/dL
[2023-12-28] MEDS: TRIAMCINOLONE ACET 0.1% OINTMENT 15 GM TUBE TOPICAL SCH (11:23)
--- NOTE | 2023-12-28 13:47 | P.CONS ---
History of Present Illness - Reason for Consult Consult date: 12/28/23 Transaminitis Requesting physician: Ronna Hill - Chief Complaint Abdominal pain - History of Present Illness This is a 23-year-old female who recently had a baby by primary section on 12/05/2023 who presented to the emergency department with complaints of abdom inal pain mostly in the epigastric region and radiating to her back. She states that during her she was having episodes but they were resolving she knew that she had gallstones. At this time the pain is in the epigastric region radiating to her back and has not improved. On admission she was noted to have elevated LFTs and underwent an ultrasound of the gallbladder with dilated CBD an d multiple gallstones. She states currently abdominal pain improved with pain medication but once it wears off she has the pain back. No nausea or vomiting. She is afebrile. No leukocytosis. Today's labs WBC 7.2 hemoglobin 10.5 platelet count 306,000 INR 1.0 sodium 138 potassium 3.9 BUN 11 creatinine 0.6 total bilirubin 3.8 AST 278 ALT 332 alkaline phosphatase 182 amylase 45 lipase 71 Review of Systems REVIEW OF SYSTEMS: CARDIOPULMONARY: No chest pain or shortness of breath. Gastrointestinal: Abdominal pain. No nausea or vomiting. No hematemesis, coffee-ground emesis. No rectal bleeding, or melena. GENITOURINARY: No dysuria or hematuria. MUSCULOSKELETAL: Reports normal range of motion. SKIN: No rashes. No jaundice. ENDOCRINE: No chills, fevers. No excessive weight gain or loss. No polydipsia or polyuria. PSYCHIATRIC: Unremarkable. NEUROLOGY: No change in mental status. Denies dizziness, headache. ENT: Vision unremarkable. CONSTITUTIONAL: No recent weight loss. No fever, chills, night sweats. Past Medical History Past Medical History: No Reported History History of Any Multi-Drug Resistant Organisms: None Reported Past Surgical History: Section Additional Past Surgical History / Comment(s): Past Anesthesia/Blood Transfusion Reactions: No Reported Reaction Past Psychological History: Depression Smoking Status: Never smoker Past Alcohol Use History: None Reported Past Drug Use History: None Reported - Past Family History Mother History Unknown: Yes Additional Family Medical History / Comment(s): pt adopted Father History Unknown: Yes Additional Family Medical History / Comment(s): pt adopted Medications and Allergies Home Medications Medication Instructions Recorded Confirmed Type Cephalexin [Keflex] 500 mg PO Q6HR #40 cap 12/12/23 12/28/23 Rx Allergies Allergy/AdvReac Type Severity Reaction Status Date / Time No Known Allergies Allergy Verified 12/28/23 08:27 Physical Exam Vitals: Vital Signs Temp Pulse Pulse Pulse Resp BP BP 12/28/23 08:00 98.5 F 69 16 123/74 12/28/23 01:44 98.6 F 46 L 16 141/87 12/27/23 23:53 98.8 F 54 L 16 137/80 12/27/23 23:23 99.3 F 61 19 135/75 12/27/23 20:07 98.5 F 60 22 152/84 Pulse Ox 12/28/23 08:00 98 12/28/23 01:44 98 12/27/23 23:53 99 12/27/23 23:23 98 12/27/23 20:07 100 Intake and Output 12/27/23 12/28/23 12/28/23 22:59 06:59 14:59 Intake Total 118 Balance 118 Intake: Oral 118 Other: Voiding Method Toilet # Voids 2 Weight 74.843 kg 74.843 kg General appearance: The patient is alert, oriented, appears in no acute distress. HET: Head is normocephalic and atraumatic. Conjunctiva pink. Sclera no nicteric. Neck: Supple without lymphadenopathy. Trachea midline. Heart: Regular. Lungs: Equal expansion, normal respiratory effort. Abdomen: Soft, right upper quadrant and epigastric tenderness, nondistended. Skin: No rashes. Jaundice. Extremities: Normal skin color and turgor. No pedal edema. Neurological: No focal deficits. Alert and oriented x3. Results CBC & Chem 7: 12/28/23 03:43 12/28/23 03:41 Labs: Abnormal Lab Results - Last 24 Hours (Table) 12/27/23 12/27/23 12/28/23 Range/Units 21:26 21:35 03:41 Hgb (11.4-16.0) gm/dL Hct (34.0-46.0) % Glucose 102 H 131 H (74-99) mg/dL Total Bilirubin 4.3 H 3.8 H (0.2-1.3) mg/dL AST 381 H 278 H (14-36) U/L ALT 397 H 332 H (4-34) U/L Alkaline Phosphatase 211 H 182 H (38-126) U/L Urine WBC 10 H (0-5) /hpf Ur Squamous Epith Cells 9 H (0-4) /hpf Urine Bacteria Rare H (None) /hpf Urine Mucus Many H (None) /hpf 12/28/23 Range/Units 03:43 Hgb 10.5 L (11.4-16.0) gm/dL Hct 33.8 L (34.0-46.0) % Glucose (74-99) mg/dL Total Bilirubin (0.2-1.3) mg/dL AST (14-36) U/L ALT (4-34) U/L Alkaline Phosphatase (38-126) U/L Urine WBC (0-5) /hpf Ur Squamous Epith Cells (0-4) /hpf Urine Bacteria (None) /hpf Urine Mucus (None) /hpf Comments: Gallbladder ultrasound reports internal gallstones redemonstrated without secondary ultrasound evidence for acute cholecystitis. There is new mild extrahepatic biliary dilation which may warrant further workup with ERCP or MRCP evaluation. Assessment and Plan (1) Choledocholithiasis Narrative/Plan: 23-year-old female presenting with right upper quadrant and epigastric pain radiating to the back with elevated bilirubin and LFTs consistent with a cholestatic pattern with ultrasound evidence of multiple gallstones and CBD dilation likely dealing with CBD stone/obstruction. tach patient had been having previous complications with the gallbladder during her recently delivered 3 weeks ago. Will plan for ERCP and consultation to general surgery. Current Visit: Yes Status: Acute Code(s): K80.50 - CALCULUS OF BILE DUCT W/O CHOLANGITIS OR CHOLECYST W/O OBST SNOMED Code(s): 973660194 (2) Hyperbilirubinemia Current Visit: Yes Status: Acute Code(s): E80.6 - OTHER DISORDERS OF BILIRUBIN METABOLISM SNOMED Code(s): 66305977 (3) Dilation of biliary tract Current Visit: Yes Status: Acute Code(s): K83.8 - OTHER SPECIFIED DISEASES OF BILIARY TRACT SNOMED Code(s): 503232594 (4) Transaminitis Current Visit: Yes Status: Acute Code(s): R74.01 - ELEVATION OF LEVELS OF LIVER TRANSAMINASE LEVELS SNOMED Code(s): 037655482 Plan: 1. Continue symptomatic and supportive care 2. Start IV fluids 75 cc/h 3. Patient may have clear liquid diet, n.p.o. after midnight 4. Pain medication as needed 5. Antiemetics as needed 6. Protonix 40 mg daily for GI prophylaxis 7. Indomethacin and Levaquin as ordered prior to procedure 8. Daily CBC, CMP. Stat INR was ordered 9. Consult to general surgery 10. Will plan for ERCP tomorrow. Please obtain consent from legal guardian. Thank you for this consultation, we will continue to follow. Dr. Shiraz Jernigan I agree with the dictator's note, documented as a scribe by Pat Payne.
[2023-12-28] MEDS: diphenhydrAMINE 25 MG CAP PO PRN (22:12)
--- NOTE | 2023-12-29 01:43 | P.PN ---
Progress Note - Text Progress Note Date: 12/29/23 NAEO. Patient Resting Comfortable. Mild Abdominal Pain VSS General-NAD Abdomen-soft, NTND ASSESSMENT: 1. Cholecystitis with gallstones and new mild extrahepatic biliary dilatation reported on ultrasound 2. Elevated LFTs and bilirubin. Possible choledocholithiasis. 3. Recent PLAN: -Patient will be scheduled for a laparoscopic cholecystectomy on 12/30/23 -Patient scheduled for ERCP with GI service today -NPO -Repeat labs in a.m. -Continue IV fluids -Continue supportive care Jeff Romo DO [facility] [phone]
[2023-12-29] MEDS: INDOMETHACIN 100 MG SUPPOSITORY RECTAL ONE (06:17)
[2023-12-29] MEDS: LEVOFLOXACIN 500MG-D5W PMX 500 MG in DEXTROSE/WATER 1 100ML.BAG IVPB SCH (06:17)
[2023-12-29] MEDS ORDERED: LIDOCAINE 1% INJ 10MG/ML (20 ML MDV) ONE (07:50)
[2023-12-29] MEDS ORDERED: ONDANSETRON 4 MG/2 ML VIAL ONE (07:50)
[2023-12-29] MEDS ORDERED: SUCCINYLCHOLINE CHLORIDE 200 MG/10 ML VIAL IV ONE (07:50)
[2023-12-29] MEDS ORDERED: PROPOFOL 10 MG/ML 20 ML VIAL IV ONE (07:50)
[2023-12-29] MEDS: IOPAMIDOL-300 50ML BTL MISCELLANE ONE (08:25)
[2023-12-29] MEDS: IV FLUID CONTINUATION 1,000 ML IV ONE (08:27)
--- NOTE | 2023-12-29 08:34 | P.PCN ---
Date of Procedure: 12/29/23 Procedure(s) Performed: Brief history: Patient is a 22 year-old pleasant lady who is 3 weeks admitted to hospital with severe epigastric pain and was noted to have elevated LFTs and jaundice with a bilirubin of 4.2. Ultrasound showed multiple gallstones and slightly dilated CBD. She is scheduled for an ERCP as part of evaluation of choledocholithiasis. Procedure performed: ERCP with biliary sphincterotomy and balloon stone extraction Preoperative diagnoses: Abdominal pain/elevated LFTs and jaundice and ultrasound showed multiple gallstones and CBD dilation IV sedation per anesthesia: Procedure: After informed consent was obtained from the patient and after the risks benefits and complications including bleeding perforation and pancreatitis explained in detail the patient was brought into the endoscopy unit. The patient was placed in prone position and IV conscious sedation was administered by anesthesia under continuous monitoring. The Olympus side-viewing duodenoscope was then inserted into the mouth and esophagus intubated without any difficulty. The scope was gradually advanced into the stomach and duodenum. The major papilla was identified without any difficulty. Additional cannulation resulted in opacification of the common bile duct and upon injection of the dye the common bile duct was dilated to 8 mm in diameter. There were 2 small filling defects noted. At this time the catheter was exchanged and a guidewire was passed into the common bile duct which was exchanged with a biliary sphincterotomy. Following this biliary sphincterotomy was performed at 11 o'clock position and was extended to 1 cm. Following this an 8 mm balloon catheter was passed over the guidewire into the proximal CBD, gently inflated and withdrawn and 2 stones were extracted each measuring about 3 to 4 mm in size. Following this an occlusion cholangiogram was performed and no other filling defects were identified. This maneuver was repeated couple more times and the balloon was started and there were no other stones extracted and the patient tolerated the procedure well. The pancreatic duct was intentionally not cannulated during the entire procedure. Impression: 1. Slightly dilated common bile duct with 2 filling defect s/p biliary sphincterotomy and balloon stone extraction and 2 stones were extracted measuring 3 to 4 mm in size 2. The pancreatic duct was not cannulated intentionally Recommendations: The findings of this examination were discussed with the patient. She will be started on clinical diet. Monitor labs closely.
[2023-12-29 08:52] LABS: Basophils # (A) 0.03 X 10*3/uL (0.00-0.10); Basophils % (A) 0.6 %; HGB 11.1 g/dL (12.0-15.0); Lymphocytes # (A) 1.81 X 10*3/uL (0.90-5.00); Lymphocytes % (A) 36.2 %; MCH 25.1 pg (27.0-32.0); MCV 83.7 FL (80.0-97.0); Mean Platelet Volume 12.2 FL (9.5-12.2); Monocytes # (A) 0.32 X 10*3/uL (0.20-1.00); Monocytes % (A) 6.4 %; NRBC Per 100 WBC 0 X 10*3/uL (0.00-0.01); Neutrophils # (A) 2.23 X 10*3/uL (1.80-7.70); Neutrophils % (A) 44.6 %; Platelet Count 304 X 10*3/uL (140-440); RBC 4.42 X 10*6/uL (4.10-5.20); RDW 13.3 % (11.5-14.5)
[2023-12-29 09:34] LABS: ALT 256 U/L (8-44); AST 123 U/L (13-35); Albumin 3.7 g/dL (3.8-4.9); Albumin/Globulin Ratio 1.48 Ratio (1.60-3.17); Alkaline Phosphatase 206 U/L (41-126); BUN/Creat Ratio 8.57 Ratio (12.00-20.00); Bilirubin, Conjugated 1.59 mg/dL (0.20-0.40); Bilirubin,Unconjugated 0.71 mg/dL (0.20-1.00); Calcium 8.8 mg/dL (8.7-10.3); Chloride 108 mmol/L (96-109); Globulin 2.5 g/dL (1.6-3.3); Glucose 90 mg/dL (70-110); Potassium 4.3 mmol/L (3.5-5.5); Sodium 141 mmol/L (135-145); Total Bilirubin 2.3 mg/dL (0.3-1.2); Total Protein 6.2 g/dL (6.2-8.2)
--- NOTE | 2023-12-29 10:23 | FL ---
Fluoroscopy INDICATION: Transaminitis FINDINGS: This is not identified Fluoroscopy time: 58 seconds. Total dose area product (DAP) in uGy*m?, mGy*cm? (or similar): 3.0283 Images obtained: 6. There may be a 0.5 cm filling defect within the distal common bile duct. This is not identified on im ages. IMPRESSION: 1. Documentation of fluoroscopy. 2. Filling defect may be in the distal common bile duct. [facility], , 12/29/2023 10:20 AM
--- NOTE | 2023-12-30 07:24 | P.PN ---
Progress Note - Text Progress Note Date: 12/30/23 NAEO. Patient Resting Comfortable. Mild Abdominal Pain VSS General-NAD Abdomen-soft, NTND ASSESSMENT: 1. Cholecystitis with gallstones and new mild extrahepatic biliary dilatation reported on ultrasound s/p ERCP 2. Elevated LFTs and bilirubin. Possible choledocholithiasis. 3. Recent PLAN: -Patient scheduled for a laparoscopic cholecystectomy this AM Jeff Romo [facility] [phone]
[2023-12-30] MEDS ORDERED: SUCCINYLCHOLINE CHLORIDE 200 MG/10 ML VIAL IV ONE (08:01)
[2023-12-30] MEDS ORDERED: MIDAZOLAM 2 MG/2 ML VIAL ONE (08:01)
[2023-12-30] MEDS ORDERED: PROPOFOL 10 MG/ML 20 ML VIAL IV ONE (08:01)
[2023-12-30] MEDS ORDERED: DEXAMETHASONE SOD PHOSPHATE 4 MG/ML 1 ML VIAL ONE (08:01)
[2023-12-30] MEDS ORDERED: KETOROLAC 15 MG/ML 1 ML VIAL ONE (08:01)
[2023-12-30] MEDS ORDERED: fentaNYL (PF) 50 MCG/ML 2 ML AMP ONE (08:01)
[2023-12-30] MEDS ORDERED: ROCURONIUM 10 MG/ML (5 ML VIAL) IV ONE (08:01)
[2023-12-30] MEDS ORDERED: ONDANSETRON 4 MG/2 ML VIAL ONE (08:01)
[2023-12-30] MEDS: SODIUM CHLORIDE 0.9% 1,000 ML IV ONE (08:05)
[2023-12-30] MEDS: SODIUM CHLORIDE 0.9% 100 ML with ceFAZolin 2,000 MG IV ONE (08:05)
[2023-12-30] MEDS: LIDOCAINE 1%-EPI 1:100,000 20 ML VIAL SQ ONE ×2 (08:35→09:07)
[2023-12-30] MEDS: LACTATED RINGERS 1,000 ML IV ONE (09:06)
[2023-12-30] MEDS: HYDROmorphone 0.5 MG/0.5 ML SYRINGE IVP PRN (09:35)
--- NOTE | 2023-12-30 09:52 | P.OP ---
Date of Procedure: 12/30/23 Preoperative Diagnosis: Cholecystitis Postoperative Diagnosis: Cholecystitis Procedure(s) Performed: Laparoscopic Cholecystectomy Anesthesia: MAC Surgeon: Jeff Romo Estimated Blood Loss (ml): 10 Pathology: other (Gallbladder) Condition: stable Disposition: PACU Description of Procedure: The patient was taken to the operating suite and placed in the supine position. Anesthesia was given and endotracheal intubation was performed. The abdomen was prepped and draped in sterile fashion. A timeout was performed. An #11 blade was used to make an incision at Aldridge's point and a 5 mm Optiview was used to gain access to the abdomen. The abdomen was insufflated. Additional working 5 mm ports were placed on the right side of the abdomen and a 12 mm port was placed in the subxiphoid location. The gallbladder was rectracted by the fundus and infundibulum. Dissection was performed on the gallbladder and the cystic duct and cystic artery were isolated. I could clearly see the duct and artery entering the gallbladder. A critical view of safety was obtained. Two clips were placed proximally and two clips were placed distally on the cystic duct and the cystic artery. The cystic duct and the cystic artery were divided with scissors. The gallbladder was then taken off the liver bed with electrocautery. The gallbladder was removed with an Endocatch through the #12 mm port. The abdomen was irrigated. A hemostatic timeout was performed and there was no active bleeding. At this time, the ports were removed and the abdomen was desufflated. The incisions were closed with #4-0 Monocryl. Skin glue was applied. This concluded the procedure. Anesthesia was reversed and the patient was awoken and sent to the PACU in stable condition.
--- NOTE | 2023-12-30 12:43 | PN ---
PROGRESS NOTE SUBJECTIVE: She is status post ERCP. She had ERCP done. She had surgery see her. She has had a laparoscopic cholecystectomy. She said she is stable post cholecystectomy, was able to get her home. OBJECTIVE: CARDIOVASCULAR: S1 and S2. LUNGS: Transmitted upper sounds. GI: Soft. HEMATOLOGY: Negative Homans. PLAN: Continue current treatment. She is status post cholecystectomy for choledocholithiasis. Once medically stable, we will send her home. Prognosis guarded. MMODL / IJN: [id number] /
[2023-12-30] MEDS: HYDROcodone/APAP 10-325MG 1 EACH TAB PO PRN (14:33)
--- NOTE | 2023-12-31 03:34 | P.PN ---
Progress Note - Text Progress Note Date: 12/31/23 NAEO. Patient Resting Comfortable. Pain is controlled. VSS General-NAD Abdomen-soft, Appropriate TTP, incisions C/D/I, mild distention ASSESSMENT: 1. POD #1 Laparoscopic Cholecystectomy 2. Cholecystitis with gallstones and new mild extrahepatic biliary dilatation reported on ultrasound s/p ERCP 3. Elevated LFTs and bilirubin. Possible choledocholithiasis. 4. Recent PLAN: -LFD -AM labs -Patient ok for discharge 12/30 pending AM labs Jeff Romo DO [facility] [phone]
[2023-12-31 03:37] LABS: ALT 122 U/L (4-34); AST 69 U/L (14-36); African American GFR (CKD) >90 (>60 ml/min/1.73 sqM); Albumin 3.1 g/dL (3.5-5.0); Albumin/Globulin Ratio 1.2; Alkaline Phosphatase 113 U/L (38-126); Anion Gap 4 mmol/L; Bilirubin,Unconjugated 0.6 mg/dL (0.0-1.1); Blood Urea Nitrogen <2 mg/dL (7-17); Calcium 8.7 mg/dL (8.4-10.2); Carbon Dioxide 24 mmol/L (22-30); Chloride 108 mmol/L (98-107); Globulin 2.5 g/dL; Glucose 105 mg/dL (74-99); Non-African American GFR(CKD) >90 (>60 ml/min/1.73 sqM); Potassium 4.2 mmol/L (3.5-5.1); Sodium 136 mmol/L (137-145); Total Protein 5.6 g/dL (6.3-8.2)
[2023-12-31 04:02] LABS: Basophils % (A) 0 %; Eosinophils # (A) 0.5 k/uL (0-0.7); Eosinophils % (A) 8 %; HCT 29.4 % (34.0-46.0); HGB 9.4 gm/dL (11.4-16.0); Hypochromasia Slight; Lymphocytes # (A) 1.8 k/uL (1.0-4.8); Lymphocytes % (A) 29 %; MCH 25.8 pg (25.0-35.0); MCV 80.8 fL (80.0-100.0); Mean Platelet Volume 9.7; Monocytes # (A) 0.4 k/uL (0-1.0); Monocytes % (A) 6 %; Neutrophils # (A) 3.4 k/uL (1.3-7.7); Neutrophils % (A) 55 %; Platelet Count 255 k/uL (150-450); RBC 3.64 m/uL (3.80-5.40); RDW 14.4 % (11.5-15.5); WBC 6.1 k/uL (3.8-10.6)
[2023-12-31 14:37] VITALS: BP 131/72
[2023-12-31 15:42] VITALS: PULSE 87; RESP 18; TEMP 99.5
== END 2023-12-31 17:37 | disposition home or self-care (01) | DRG 548 ==
LOC: EC 19:47 → 6NMEDSUR 22:46
PROVIDERS: ADMIT Family Medicine; ATTEND Family Medicine
PROC: BF101ZZ Fluoroscopy of Bile Ducts using Low Osmolar Contrast (ICD-10-PCS; 2023-12-29 08:15)
PROC: 0FC98ZZ Extirpation of Matter from Common Bile Duct, Via Natural or Artificial Opening Endoscopic (ICD-10-PCS; 2023-12-29 08:15)
PROC: 0FT44ZZ Resection of Gallbladder, Percutaneous Endoscopic Approach (ICD-10-PCS; principal; 2023-12-30 08:00)
DX: O26.63 Liver and biliary tract disorders in the puerperium (principal); K80.62 Calculus of gallbladder and bile duct with acute cholecystitis without obstruction
CPT/HCPCS: 36415; 43262; 43264; 74330; 76705; 80053; 80076; 81001; 81025; 82150; 82248; 83605; 83690; 85025; 85610; 88304; 96374; 96375; 99285

== ENCOUNTER 2024-05-31 17:06 | Emergency (ER) | payer OTHER ==
[2024-05-31 17:15] VITALS: TEMP 98.3
--- NOTE | 2024-05-31 18:54 | XR ---
EXAMINATION TYPE: XR chest 2V DATE OF EXAM: 05/31/2024 6:37 PM COMPARISON: 02/24/2022 CLINICAL INDICATION: Female, 23 years old with history of upper resp symptoms, TECHNIQUE: XR chest 2V view(s) obtained. FINDINGS: The heart size is normal. The pulmonary vasculature is normal. The lungs are clear. IMPRESSION: 1. No acute pulmonary process. [facility], , 05/31/2024 6:52 PM
[2024-05-31] MEDS: SODIUM CHLORIDE 0.9% 1,000 ML IV STA (20:08)
[2024-05-31] MEDS: KETOROLAC 15 MG/ML 1 ML VIAL IVP STA (20:19)
[2024-05-31 20:26] LABS: Basophils % (A) 1 %; Eosinophils # (A) 0.3 k/uL (0-0.7); Eosinophils % (A) 5 %; HCT 35.2 % (34.0-46.0); HGB 11.2 gm/dL (11.4-16.0); Hypochromasia Slight; Lymphocytes # (A) 2.3 k/uL (1.0-4.8); Lymphocytes % (A) 36 %; MCH 23.6 pg (25.0-35.0); MCV 73.7 fL (80.0-100.0); Mean Platelet Volume 8.8; Microcytosis Slight; Monocytes # (A) 0.4 k/uL (0-1.0); Monocytes % (A) 6 %; Neutrophils # (A) 3.2 k/uL (1.3-7.7); Neutrophils % (A) 51 %; Platelet Count 241 k/uL (150-450); RBC 4.77 m/uL (3.80-5.40); RDW 14.5 % (11.5-15.5); WBC 6.2 k/uL (3.8-10.6)
[2024-05-31 20:39] LABS: Partial Thromboplastin Time 22.5 sec (22.0-30.0); Prothrombin Time 11.2 sec (10.0-12.5)
[2024-05-31 20:49] LABS: ALT 22 U/L (4-34); AST 22 U/L (14-36); African American GFR (CKD) >90 (>60 ml/min/1.73 sqM); Albumin 3.9 g/dL (3.5-5.0); Alkaline Phosphatase 72 U/L (38-126); Anion Gap 9 mmol/L; Blood Urea Nitrogen 11 mg/dL (7-17); Calcium 8.7 mg/dL (8.4-10.2); Carbon Dioxide 25 mmol/L (22-30); Chloride 105 mmol/L (98-107); Glucose 83 mg/dL (74-99); Magnesium 1.9 mg/dL (1.6-2.3); Non-African American GFR(CKD) >90 (>60 ml/min/1.73 sqM); Potassium 4.1 mmol/L (3.5-5.1); Sodium 139 mmol/L (137-145); Total Bilirubin 0.4 mg/dL (0.2-1.3); Total Protein 6.8 g/dL (6.3-8.2)
[2024-05-31 21:02] LABS: Influenza A Not Detected (Not Detectd); Influenza B Not Detected (Not Detectd); RSV Not Detected (Not Detectd)
[2024-05-31 21:07] LABS: Appearance,Urine Cloudy (Clear); Bacteria,Urine Occasional /hpf; Bilirubin,Urine Negative (Negative); Blood,Urine Negative (Negative); Color,Urine Yellow; Glucose,Urine (UA) Negative (Negative); Ketones,Urine Negative (Negative); Leukocyte Esterase,Urine Negative (Negative); Mucus,Urine Few /hpf; Nitrite,Urine Negative (Negative); PH, Urine 6.5 (5.0-8.0); Protein,Urine Trace (Negative); RBC,Urine 3 /hpf (0-5); Specific Gravity,Urine 1.031 (1.001-1.035); Squamous Epithelial Cell,Urine 3 /hpf (0-4); WBC,Urine 2 /hpf (0-5)
--- NOTE | 2024-05-31 21:29 | ED ---
General Adult HPI - General Chief complaint: Recheck/Abnormal Lab/Rx Stated complaint: chest pain Time Seen by Provider: 05/31/24 18:49 Source: patient Mode of arrival: ambulatory Limitations: no limitations - History of Present Illness Initial comments: 23-year-old female presenting with chief complaint of chest pain. Patient is having sharp centralized chest pain that has been ongoing for about 3 weeks. Patient has also been experiencing cough for the last 3 weeks. She states that her cough is improving but she is still getting pain with coughing and deep breaths. No lower extremity swelling. Patient does not take oral contraceptives. No history of blood clots. No recent surgery or long travel. No shortness of breath. No fevers. No nausea vomiting or abdominal pain. - Related Data Home Medications Medication Instructions Recorded Confirmed No Known Home Medications 05/31/24 05/31/24 Allergies Allergy/AdvReac Type Severity Reaction Status Date / Time No Known Allergies Allergy Verified 05/31/24 20:12 Review of Systems ROS Statement: Those systems with pertinent positive or pertinent negative responses have been documented in the HPI. ROS Other: All systems not noted in ROS Statement are negative. Past Medical History Past Medical History: No Reported History Additional Past Medical History / Comment(s): gallstones History of Any Multi-Drug Resistant Organisms: None Reported Past Surgical History: Section, Cholecystectomy Additional Past Surgical History / Comment(s): , Past Anesthesia/Blood Transfusion Reactions: No Reported Reaction Past Psychological History: Depression Smoking Status: Never smoker Past Alcohol Use History: None Reported Past Drug Use History: None Reported - Past Family History Mother History Unknown: Yes Additional Family Medical History / Comment(s): pt adopted Father History Unknown: Yes Additional Family Medical History / Comment(s): pt adopted General Exam Limitations: no limitations General appearance: alert, in no apparent distress Head exam: Present: atraumatic, normocephalic, normal inspection Eye exam: Present: normal appearance, EOMI Neck exam: Present: normal inspection. Absent: meningismus Respiratory exam: Present: normal lung sounds bilaterally, chest wall tenderness. Absent: respiratory distress, wheezes, rales, rhonchi, stridor Cardiovascular Exam: Present: regular rate, normal rhythm, normal heart sounds. Absent: systolic murmur, diastolic murmur, rubs, gallop, clicks Extremities exam: Absent: pedal edema Neurological exam: Present: alert, oriented X3 Psychiatric exam: Present: normal affect, normal mood Skin exam: Present: warm, dry, normal color Course Vital Signs 05/31/24 05/31/24 17:07 21:37 Temperature 98.3 F Pulse Rate 89 71 Respiratory 19 16 Rate Blood Pressure 123/74 93/69 O2 Sat by Pulse 97 100 Oximetry Medical Decision Making - Medical Decision Making Was pt. sent in by a medical professional or institution (, PA, FOURDRINIER TENDER, urgent care, hospital, or fdc...) When possible be specific @ -PCP Did you speak to anyone other than the patient for history (EMS, parent, family, police, friend...)? What history was obtained from this source @ -No Did you review nursing and triage notes (agree or disagree)? Why? @ -I reviewed and agree with nursing and triage notes Were old charts reviewed (outside hosp., previous admission, EMS record, old EKG, old radiological studies, urgent care reports/EKG's, fdc records)? Report findings @ -No old charts were reviewed Differential Diagnosis (chest pain, altered mental status, abdominal pain women, abdominal pain men, vaginal bleeding, weakness, fever, dyspnea, syncope, headache, dizziness, GI bleed, back pain, seizure, CVA, palpatations, mental health, musculoskeletal)? @ -MDM Differential Chest Pain: Stable Angina, Unstable Angina, STEMI, NSTEMI Aortic Dissection, Pneumothorax, Musculoskeletal, Esophageal Spasm GERD, Cholecystitis, Pancreatitis, Zoster This is not meant to be an all-inclusive list. EKG interpreted by me (3pts min.). @ -EKG shows sinus rhythm with sinus arrhythmia with short DE interval. Ventricular rate 81. DE interval 113. QRS 114. QT 393. QTc 430. X-rays interpreted by me (1pt min.). @ -Chest x-ray shows no acute pulmonary process CT interpreted by me (1pt min.). @ -None done U/S interpreted by me (1pt. min.). @ -None done What testing was considered but not performed or refused? (CT, X-rays, U/S, labs)? Why? @ -None What meds were considered but not given or refused? Why? @ -None Did you discuss the management of the patient with other professionals (professionals i.e. , PA, FOURDRINIER TENDER, lab, RT, psych nurse, social media project manager, operations welder, teacher, co founder and chief strategy officer, case finishing machine adjuster)? Give summary @ -No Was smoking cessation discussed for >3mins.? @ -No Was critical care preformed (if so, how long)? @ -No Were there social determinants of health that impacted care today? How? (Homelessness, low income, unemployed, alcoholism, drug addiction, transportation, low edu. Level, literacy, decrease access to med. care, [facility], rehab)? @ -No Was there de-escalation of care discussed even if they declined (Discuss DNR or withdrawal of care, Hospice)? DNR status @ -No What co-morbidities impacted this encounter? (DM, HTN, Smoking, COPD, CAD, Can cer, CVA, ARF, Chemo, Hep., AIDS, mental health diagnosis, sleep apnea, morbid obesity)? @ -None Was patient admitted / discharged? Hospital course, mention meds given and route, prescriptions, significant lab abnormalities, going to OR and other pertinent info. @ -23-year-old female presenting with chief complaint of chest pain. This was preceded by URI and patient has had a persisting cough afterwards. Worse with deep breaths and cough. No lower extremity swelling. Heart and lungs are clear to auscultation. Pain is reproducible on exam. No leukocytosis. Hemoglobin 11.2, improved from the patient's recent values. Negative D-dimer and troponin. Chest x-ray shows no acute process. She is negative for influenza, RSV, COVID. hCG is negative. On reassessment she does report some improvement in her pain after Toradol. And fluids. She is educated on today's findings and supportive management at home. Follow-up with PCP. Report back to ER with any new or worsening symptoms. Discussed return parameters and answered all questions. Patient conveyed verbal understanding and agreed to the plan. I discussed this case in detail with my attending Dr. Vital Undiagnosed new problem with uncertain prognosis? @ -No Drug Therapy requiring intensive monitoring for toxicity (Heparin, Nitro, Insulin, Cardizem)? @ -No Were any procedures done? @ -No Diagnosis/symptom? @ -Chest wall pain Acute, or Chronic, or Acute on Chronic? @ -Acute Uncomplicated (without systemic symptoms) or Complicated (systemic symptoms)? @ -Uncomplicated Side effects of treatment? @ -No Exacerbation, Progression, or Severe Exacerbation? @ -No Poses a threat to life or bodily function? How? (Chest pain, [place], [place], pneumonia, PE, COPD, DKA, ARF, appy, cholecystitis, CVA, Diverticulitis, Homicidal, Suicidal, threat to staff... and all critical care pts) @ -Low likelihood - Lab Data Result diagrams: 05/31/24 20:07 05/31/24 20:07 Lab Results 05/31/24 05/31/24 05/31/24 Range/Units 20:00 20:07 20:07 WBC 6.2 (3.8-10.6) k/uL RBC 4.77 (3.80-5.40) m/uL Hgb 11.2 L (11.4-16.0) gm/dL Hct 35.2 (34.0-46.0) % MCV 73.7 L (80.0-100.0) fL MCH 23.6 L (25.0-35.0) pg MCHC 32.0 (31.0-37.0) g/dL RDW 14.5 (11.5-15.5) % Plt Count 241 (150-450) k/uL MPV 8.8 Neutrophils % 51 % Lymphocytes % 36 % Monocytes % 6 % Eosinophils % 5 % Basophils % 1 % Neutrophils # 3.2 (1.3-7.7) k/uL Lymphocytes # 2.3 (1.0-4.8) k/uL Monocytes # 0.4 (0-1.0) k/uL Eosinophils # 0.3 (0-0.7) k/uL Basophils # 0.0 (0-0.2) k/uL Hypochromasia Slight Microcytosis Slight PT 11.2 (10.0-12.5) sec INR 1.0 (<1.2) APTT 22.5 (22.0-30.0) sec D-Dimer 0.19 (<0.60) mg/L FEU Sodium (137-145) mmol/L Potassium (3.5-5.1) mmol/L Chloride (98-107) mmol/L Carbon Dioxide (22-30) mmol/L Anion Gap mmol/L BUN (7-17) mg/dL Creatinine (0.52-1.04) mg/dL Est GFR (CKD-EPI)AfAm (>60 ml/min/1.73 sqM) Est GFR (CKD-EPI)NonAf (>60 ml/min/1.73 sqM) Glucose (74-99) mg/dL Calcium (8.4-10.2) mg/dL Magnesium (1.6-2.3) mg/dL Total Bilirubin (0.2-1.3) mg/dL AST (14-36) U/L ALT (4-34) U/L Alkaline Phosphatase (38-126) U/L Troponin I (0.000-0.034) ng/mL Total Protein (6.3-8.2) g/dL Albumin (3.5-5.0) g/dL Urine Color Urine Appearance (Clear) Urine pH (5.0-8.0) Ur Specific [place] (1.001-1.035) Urine Protein (Negative) Urine Glucose (UA) (Negative) Urine Ketones (Negative) Urine Blood (Negative) Urine Nitrite (Negative) Urine Bilirubin (Negative) Urine Urobilinogen (<2.0) mg/dL Ur Leukocyte Esterase (Negative) Urine RBC (0-5) /hpf Urine WBC (0-5) /hpf Ur Squamous Epith Cells (0-4) /hpf Urine Bacteria (None) /hpf Urine Mucus (None) /hpf Urine HCG, Qual (Not Detectd) Influenza Type A (PCR) Not Detected (Not Detectd) Influenza Type B (PCR) Not Detected (Not Detectd) RSV (PCR) Not Detected (Not Detectd) SARS-CoV-2 (PCR) Not Detected (Not Detectd) 05/31/24 05/31/24 05/31/24 Range/Units 20:07 20:07 20:48 WBC (3.8-10.6) k/uL RBC (3.80-5.40) m/uL Hgb (11.4-16.0) gm/dL Hct (34.0-46.0) % MCV (80.0-100.0) fL MCH (25.0-35.0) pg MCHC (31.0-37.0) g/dL RDW (11.5-15.5) % Plt Count (150-450) k/uL MPV Neutrophils % % Lymphocytes % % Monocytes % % Eosinophils % % Basophils % % Neutrophils # (1.3-7.7) k/uL Lymphocytes # (1.0-4.8) k/uL Monocytes # (0-1.0) k/uL Eosinophils # (0-0.7) k/uL Basophils # (0-0.2) k/uL Hypochromasia Microcytosis PT (10.0-12.5) sec INR (<1.2) APTT (22.0-30.0) sec D-Dimer (<0.60) mg/L FEU Sodium 139 (137-145) mmol/L Potassium 4.1 (3.5-5.1) mmol/L Chloride 105 (98-107) mmol/L Carbon Dioxide 25 (22-30) mmol/L Anion Gap 9 mmol/L BUN 11 (7-17) mg/dL Creatinine 0.56 (0.52-1.04) mg/dL Est GFR (CKD-EPI)AfAm >90 (>60 ml/min/1.73 sqM) Est GFR (CKD-EPI)NonAf >90 (>60 ml/min/1.73 sqM) Glucose 83 (74-99) mg/dL Calcium 8.7 (8.4-10.2) mg/dL Magnesium 1.9 (1.6-2.3) mg/dL Total Bilirubin 0.4 (0.2-1.3) mg/dL AST 22 (14-36) U/L ALT 22 (4-34) U/L Alkaline Phosphatase 72 (38-126) U/L Troponin I <0.012 (0.000-0.034) ng/mL Total Protein 6.8 (6.3-8.2) g/dL Albumin 3.9 (3.5-5.0) g/dL Urine Color Yellow Urine Appearance Cloudy H (Clear) Urine pH 6.5 (5.0-8.0) Ur Specific [place] 1.031 (1.001-1.035) Urine Protein Trace H (Negative) Urine Glucose (UA) Negative (Negative) Urine Ketones Negative (Negative) Urine Blood Negative (Negative) Urine Nitrite Negative (Negative) Urine Bilirubin Negative (Negative) Urine Urobilinogen 2.0 (<2.0) mg/dL Ur Leukocyte Esterase Negative (Negative) Urine RBC 3 (0-5) /hpf Urine WBC 2 (0-5) /hpf Ur Squamous Epith Cells 3 (0-4) /hpf Urine Bacteria Occasional H (None) /hpf Urine Mucus Few H (None) /hpf Urine HCG, Qual (Not Detectd) Influenza Type A (PCR) (Not Detectd) Influenza Type B (PCR) (Not Detectd) RSV (PCR) (Not Detectd) SARS-CoV-2 (PCR) (Not Detectd) 05/31/24 Range/Units 20:48 WBC (3.8-10.6) k/uL RBC (3.80-5.40) m/uL Hgb (11.4-16.0) gm/dL Hct (34.0-46.0) % MCV (80.0-100.0) fL MCH (25.0-35.0) pg MCHC (31.0-37.0) g/dL RDW (11.5-15.5) % Plt Count (150-450) k/uL MPV Neutrophils % % Lymphocytes % % Monocytes % % Eosinophils % % Basophils % % Neutrophils # (1.3-7.7) k/uL Lymphocytes # (1.0-4.8) k/uL Monocytes # (0-1.0) k/uL Eosinophils # (0-0.7) k/uL Basophils # (0-0.2) k/uL Hypochromasia Microcytosis PT (10.0-12.5) sec INR (<1.2) APTT (22.0-30.0) sec D-Dimer (<0.60) mg/L FEU Sodium (137-145) mmol/L Potassium (3.5-5.1) mmol/L Chloride (98-107) mmol/L Carbon Dioxide (22-30) mmol/L Anion Gap mmol/L BUN (7-17) mg/dL Creatinine (0.52-1.04) mg/dL Est GFR (CKD-EPI)AfAm (>60 ml/min/1.73 sqM) Est GFR (CKD-EPI)NonAf (>60 ml/min/1.73 sqM) Glucose (74-99) mg/dL Calcium (8.4-10.2) mg/dL Magnesium (1.6-2.3) mg/dL Total Bilirubin (0.2-1.3) mg/dL AST (14-36) U/L ALT (4-34) U/L Alkaline Phosphatase (38-126) U/L Troponin I (0.000-0.034) ng/mL Total Protein (6.3-8.2) g/dL Albumin (3.5-5.0) g/dL Urine Color Urine Appearance (Clear) Urine pH (5.0-8.0) Ur Specific [place] (1.001-1.035) Urine Protein (Negative) Urine Glucose (UA) (Negative) Urine Ketones (Negative) Urine Blood (Negative) Urine Nitrite (Negative) Urine Bilirubin (Negative) Urine Urobilinogen (<2.0) mg/dL Ur Leukocyte Esterase (Negative) Urine RBC (0-5) /hpf Urine WBC (0-5) /hpf Ur Squamous Epith Cells (0-4) /hpf Urine Bacteria (None) /hpf Urine Mucus (None) /hpf Urine HCG, Qual Not Detected (Not Detectd) Influenza Type A (PCR) (Not Detectd) Influenza Type B (PCR) (Not Detectd) RSV (PCR) (Not Detectd) SARS-CoV-2 (PCR) (Not Detectd) Disposition Clinical Impression: Chest wall pain Disposition: HOME SELF-CARE Condition: Good Instructions (If sedation given, give patient instructions): Chest Pain (ED) Additional Instructions: Follow-up with PCP. Report back to ER with any new or worsening symptoms. Take Motrin and Tylenol as needed for pain control. Is patient prescribed a controlled substance at d/c from ED?: No Referrals: Brian Munoz MD [Primary Care Provider] - 1-2 days Time of Disposition: 21:29
[2024-05-31 21:44] VITALS: BP 93/69; PULSE 71; RESP 16
== END 2024-05-31 21:37 | disposition home or self-care (01) ==
LOC: EC 17:06
DX: R07.89 Other chest pain (principal)
CPT/HCPCS: 36415; 93005; 85379; 80053; 83735; 84484; 85025; 85610; 85730; 81001; 81025; 87636; 71046; 99285; 96374; 96361; J1885

== ENCOUNTER 2024-10-17 20:02 | Emergency (ER) | payer OTHER ==
[2024-10-17 20:10] VITALS: RESP 18
--- NOTE | 2024-10-17 21:16 | ED ---
Abdominal Pain HPI - General Source: patient Mode of arrival: ambulatory Limitations: no limitations <Jennifer Berry - Last Filed: 10/17/24 21:12> <Ronna Hill - Last Filed: 10/18/24 00:17> - General Chief Complaint: Abdominal Pain Stated Complaint: Chest pain/stomach pain Time Seen by Provider: 10/17/24 21:12 - History of Present Illness Initial Comments: Quick note: 24-year-old female presenting with chief complaint of abdominal pain and chest pain. Abdominal pain has been ongoing for 1 week. It is diffuse pain. She is also complaining of chest pain that is centralized. No radiation of pain. Some nausea no vomiting. (Jennifer Berry) 24-year-old female with no reported pertinent medical conditions presenting to the emergency department with complaints of abdominal pain and chest pain. She states that she has been having lower abdominal pain that has been ongoing for 1 week that is diffuse however mildly worse in the left lower quadrant. Patient states that her last bowel movement was in the morning however she does have a history of constipation. She denies dysuria, hematuria, creased urinary frequency or urgency, diarrhea. Reports nausea with no emesis. Denies fevers or chills. She states that she is having chest pain over the past 2 days that is centralized and nonradiating. She reports that she was accidentally pushed into her child's crib and this is where the pain is located is reproducible on pressure. Previous cholecystectomy. (Ronna Hill) - Related Data Home Medications Medication Instructions Recorded Confirmed No Known Home Medications 05/31/24 05/31/24 Allergies Allergy/AdvReac Type Severity Reaction Status Date / Time No Known Allergies Allergy Verified 10/17/24 20:10 Review of Systems ROS Other: All systems not noted in ROS Statement are negative. <Jennifer Berry - Last Filed: 10/17/24 21:12> ROS Other: All systems not noted in ROS Statement are negative. <Ronna Hill - Last Filed: 10/18/24 00:17> ROS Statement: Those systems with pertinent positive or pertinent negative responses have been documented in the HPI. Past Medical History Past Medical History: Asthma Additional Past Medical History / Comment(s): gallstones History of Any Multi-Drug Resistant Organisms: None Reported Past Surgical History: Section, Cholecystectomy Additional Past Surgical History / Comment(s): , Past Anesthesia/Blood Transfusion Reactions: No Reported Reaction Past Psychological History: Depression Smoking Status: Never smoker Past Alcohol Use History: None Reported Past Drug Use History: None Reported - Past Family History Mother History Unknown: Yes Additional Family Medical History / Comment(s): pt adopted Father History Unknown: Yes Additional Family Medical History / Comment(s): pt adopted <Jennifer Berry - Last Filed: 10/17/24 21:12> General Exam Limitations: no limitations <Jennifer Berry - Last Filed: 10/17/24 21:12> Neck exam: Present: normal inspection. Absent: tenderness, meningismus, lymphadenopathy Respiratory exam: Present: normal lung sounds bilaterally, chest wall tenderness (mid chest). Absent: respiratory distress, wheezes, rales, rhonchi, stridor Cardiovascular Exam: Present: regular rate, normal rhythm, normal heart sounds. Absent: systolic murmur, diastolic murmur, rubs, gallop, clicks GI/Abdominal exam: Present: soft, tenderness (lower left), normal bowel sounds. Absent: distended, guarding, rebound, rigid Extremities exam: Present: normal inspection, full ROM, normal capillary refill. Absent: tenderness, pedal edema, joint swelling, calf tenderness Back exam: Present: normal inspection <Ronna Hill - Last Filed: 10/18/24 00:17> - General Exam Comments Initial Comments: Visual Physical Exam Vital signs reviewed General: Well-appearing, nontoxic, no acute distress. Head: Normocephalic, atraumatic Eyes: PERRLA, EOMI ENT: Airway patent Chest: Nonlabored breathing Skin: No visual rash, normal skin tone Neuro: Alert and oriented 3 Musculoskeletal: No gross abnormalities (Jennifer Berry) Course Vital Signs 10/17/24 10/17/24 20:08 23:58 Temperature 98.3 F 98.1 F Pulse Rate 78 81 Respiratory 18 18 Rate Blood Pressure 134/88 128/79 O2 Sat by Pulse 99 99 Oximetry Medical Decision Making <Jennifer Berry - Last Filed: 10/17/24 21:12> <Ronna Hill - Last Filed: 10/18/24 00:17> - Medical Decision Making I performed the quick note portion of this visit, electronically signed Jennifer Berry PA-C (Jennifer Berry) Was pt. sent in by a medical professional or institution (RONY Daly, PHTHALIC ACID PURIFIER, urgent care, hospital, or care home...) When possible be specific @ -No Did you speak to anyone other than the patient for history (EMS, parent, family, police, friend...)? What history was obtained from this source @ -No Did you review nursing and triage notes (agree or disagree)? Why? @ -I reviewed and agree with nursing and triage notes Were old charts reviewed (outside hosp., previous admission, EMS record, old EKG, old radiological studies, urgent care reports/EKG's, care home records)? Report findings @ -No old charts were reviewed Differential Diagnosis (chest pain, altered mental status, abdominal pain women, abdominal pain men, vaginal bleeding, weakness, fever, dyspnea, syncope, headache, dizziness, GI bleed, back pain, seizure, CVA, palpatations, mental health, musculoskeletal)? @ -Differential Abdominal Pain Women: Appendicitis, Cholecystitis, diverticulosis, ischemic bowel, pancreatitis, hepatitis, UTI, gastroenteritis, AAA, incarcerated hernia, bowel obstruction, constipation, inflammatory bowel, hepatitis, peptic ulcer disease, splenic infarction, perforated viscus, vulvitis, ovarian torsion, PID, kidney stone, placenta abruption, this is not meant to be an all-inclusive list EKG interpreted by me (3pts min.). @ -Completed at 2024 sinus rhythm with a ventricular rate of 80, [place] interval 163, QRS 98, QT 361, QTc 396. X-rays interpreted by me (1pt min.). @ -X-ray of the chest reveals no acute cardiopulmonary process. X-ray KUB reveals large amount of stool in the colon with a nonobstructive bowel gas pattern. CT interpreted by me (1pt min.). @ -None done U/S interpreted by me (1pt. min.). @ -None done What testing was considered but not performed or refused? (CT, X-rays, U/S, labs)? Why? @ -None What meds were considered but not given or refused? Why? @ -None Did you discuss the management of the patient with other professionals (professionals i.e. Dr., PA, PHTHALIC ACID PURIFIER, lab, RT, psych nurse, social and human services assistant, comb capper, teacher, health officer, leather case finisher)? Give summary @ -No Was smoking cessation discussed for >3mins.? @ -No Was critical care preformed (if so, how long)? @ -No Were there social determinants of health that impacted care today? How? (Homelessness, low income, unemployed, alcoholism, drug addiction, transportation, low edu. Level, literacy, decrease access to med. care, residential, rehab)? @ -No Was there de-escalation of care discussed even if they declined (Discuss DNR or withdrawal of care, Hospice)? DNR statu @ -No What co-morbidities impacted this encounter? (DM, HTN, Smoking, COPD, CAD, Cancer, CVA, ARF, Chemo, Hep., AIDS, mental health diagnosis, sleep apnea, morbid obesity)? @ -None Was patient admitted / discharged? Hospital course, mention meds given and route, prescriptions, significant lab abnormalities, going to OR and other pertinent info. @ -Discharge. 24-year-old female presenting to the ER with complaints of abdominal pain and chest pain. Patient's chest pain is reproducible on examination EKG is in sinus rhythm. Symptoms of chest pain likely secondary to musculoskeletal nature rather than cardiac. Patient has mild tenderness to the lower abdomen. X-ray imaging reveals constipation. Patient had her last bowel movement in the morning. Recommend that she increase fiber intake, water intake and take [id number] stool softener. At this time I do not believe it is necessary to provide the patient with a laxative patient is in agreement with this. Patient provided with Tylenol for pain relief. Case discussed with Dr. Vital Undiagnosed new problem with uncertain prognosis? @ -No Drug Therapy requiring intensive monitoring for toxicity (Heparin, Nitro, Insulin, Cardizem)? @ -No Were any procedures done? @ -No Diagnosis/symptom? @ -Constipation, noncardiac chest pain Acute, or Chronic, or Acute on Chronic? @ -Acute Uncomplicated (without systemic symptoms) or Complicated (systemic symptoms)? @ -Uncomplicated Side effects of treatment? @ -No Exacerbation, Progression, or Severe Exacerbation? @ -No Poses a threat to life or bodily function? How? (Chest pain, [place], [place], pneumonia, PE, COPD, DKA, ARF, appy, cholecystitis, CVA, Diverticulitis, Homicidal, Suicidal, threat to staff... and all critical care pts) @ -No (Ronna Hill) - Lab Data Lab Results 10/17/24 10/17/24 Range/Units 21:50 21:50 Urine Color Yellow Urine Appearance Cloudy H (Clear) Urine pH 7.5 (5.0-8.0) Ur Specific [place] 1.033 (1.001-1.035) Urine Protein Trace H (Negative) Urine Glucose (UA) Negative (Negative) Urine Ketones Negative (Negative) Urine Blood Negative (Negative) Urine Nitrite Negative (Negative) Urine Bilirubin Negative (Negative) Urine Urobilinogen 2.0 (<2.0) mg/dL Ur Leukocyte Esterase Negative (Negative) Urine RBC 2 (0-5) /hpf Urine WBC 5 (0-5) /hpf Ur Squamous Epith Cells 14 H (0-4) /hpf Amorphous Sediment Rare H (None) /hpf Urine Mucus Many H (None) /hpf Urine HCG, Qual Not Detected (Not Detectd) Disposition <Jennifer Berry - Last Filed: 10/17/24 21:12> Is patient prescribed a controlled substance at d/c from ED?: No Time of Disposition: 23:24 <Ronna Hill - Last Filed: 10/18/24 00:17> Clinical Impression: Chest pain, non-cardiac, Constipation Disposition: HOME SELF-CARE Condition: Good Instructions (If sedation given, give patient instructions): Constipation (ED) Additional Instructions: Please return to the Emergency Department if symptoms worsen or any other concerns. Referrals: Brian Munoz MD [Primary Care Provider] - 1-2 days
[2024-10-17 22:11] LABS: Amorphous Sediment,Urine Rare /hpf; Bilirubin,Urine Negative (Negative); Blood,Urine Negative (Negative); Color,Urine Yellow; Glucose,Urine (UA) Negative (Negative); Ketones,Urine Negative (Negative); Leukocyte Esterase,Urine Negative (Negative); Mucus,Urine Many /hpf; Nitrite,Urine Negative (Negative); PH, Urine 7.5 (5.0-8.0); Protein,Urine Trace (Negative); RBC,Urine 2 /hpf (0-5); Specific Gravity,Urine 1.033 (1.001-1.035); Squamous Epithelial Cell,Urine 14 /hpf (0-4); Urobilinogen,Urine 2.0 mg/dL (<2.0); WBC,Urine 5 /hpf (0-5)
--- NOTE | 2024-10-17 22:59 | XR ---
EXAM: XR Chest, 2 Views CLINICAL HISTORY: ITS.REASON XR Reason: chest pain TECHNIQUE: Frontal and lateral views of the chest. COMPARISON: 05/31/2024 FINDINGS: Lungs: No consolidation. Pleural space: Unremarkable. No pneumothorax. Heart: No cardiomegaly. Bones/joints: No acute osseous abnormality. IMPRESSION: No acute cardiopulmonary abnormality.
--- NOTE | 2024-10-17 23:00 | XR ---
EXAM: XR Abdomen, 2 Views CLINICAL HISTORY: ITS.REASON XR Reason: abdominal pain TECHNIQUE: Frontal view of the abdomen/pelvis with upright view of the abdomen. COMPARISON: No relevant prior studies available. FINDINGS: Intraperitoneal space: No free air. Gastrointestinal tract: Large amount of stool in the colon. Nonobstructive bowel gas pattern. Organs: Cholecystectomy clips right upper quadrant. Bones/joints: No acute osseous abnormality. IMPRESSION: Large amount of stool in the colon. Nonobstructive bowel gas pattern.
[2024-10-17] MEDS: ACETAMINOPHEN TAB 325 MG TAB PO STA (23:56)
[2024-10-18] VITALS: BP 128/79; PULSE 81; TEMP 98.1
== END 2024-10-18 01:57 | disposition home or self-care (01) ==
LOC: EC 20:02
DX: R07.89 Other chest pain (principal); K59.00 Constipation, unspecified
CPT/HCPCS: 71046; 74018; 81001; 81025; 93005; 99285